=== PATIENT | female | born 1950 | race Caucasian/White ===

== ENCOUNTER 2021-03-15 14:58 | Inpatient (IN) | payer MEDICARE ==
[2021-03-15] MEDS ORDERED: fentaNYL Citrate-0.9 % NaCl/PF 100 ML IVPB SCH (15:15)
[2021-03-15 15:31] LABS: #Basophils 0.3 10x3/uL (0.0-0.2); #Eosinphils 0.5 10x3/uL (0.0-0.5); #Monocytes 0.7 10x3/uL (0.0-1.1); #Neutrophils 13.4 10x3/uL (1.5-8.4); %Basophils 1.3 % (0.0-2.0); %Eosinophils 2.3 % (0.0-6.0); %Monocytes 3.5 % (0.0-10.0); %Neutrophils 69.1 % (40.0-75.0); Hemoglobin 13.5 g/dL (12.0-15.5); Mean Corpuscular HGB CONC 32.3 g/dL (32.0-36.0); Mean Corpuscular Hemoglobin 30.3 pg (27.0-33.0); Mean Corpuscular Volume 93.7 fl (81.6-98.3); Mean Platelet Volume 10.6 fl (7.4-10.4); Platelet Count 271 10x3/uL (150-450); Red Blood Cell (RBC) Count 4.46 10x6/uL (3.90-5.03); White Blood Cell (WBC) Count 19.4 10x3/uL (3.5-10.5)
[2021-03-15 15:45] LABS: ALT (SGPT) 52 U/L (8-55); AST (SGOT) 73 U/L (5-34); Albumin 2.6 g/dL (3.4-4.8); Alkaline Phosphatase 94 U/L (40-110); Anion Gap 17 mmol/L (10-20); BUN (Urea Nitrogen) 5 mg/dL (9.8-20.1); Bilirubin, Total 0.4 mg/dL (0.2-1.2); CK (CPK) 66 U/L (29-168); Calc. Creatinine Clearance 0 mL/min (70-130); Calcium 9.8 mg/dL (7.8-10.44); Carbon Dioxide 29 mmol/L (23-31); Chloride 104 mmol/L (98-107); Glucose 295 mg/dL (80-115); Lipase 17 U/L (8-78); Magnesium 1.6 mg/dL (1.6-2.6); Protein, Total 5.6 g/dL (5.8-8.1); Sodium 148 mmol/L (136-145)
[2021-03-15 15:49] LABS: Potassium 2.4 mmol/L (3.5-5.1)
[2021-03-15 16:08] LABS: CKMB 2.4 ng/mL (0-6.6)
[2021-03-15 16:39] LABS: SARS-CoV-2 NAA Rapid Test DETECTED (NotDetected)
[2021-03-15 16:40] LABS: PTT 20.7 sec (22.0-33.0)
[2021-03-15 17:01] LABS: Bilirubin Neg (Negative); Blood, Urine 50 (Negative); Clarity Clear (Clear); Glucose, Urine (Dipstick) 100 mg/dL (Negative); Ketone, Urine Negative (Negative); Leukocyte 25 (Negative); Nitrite Negative (Negative); Protein, Urine (Dipstick) 500 mg/dl (Neg-Trace); Specific Gravity, Urine 1.015 (1.002-1.036); Urobilinogen Normal mg/dL (Less than 2); pH, Urine 6.5 (5.0-9.0)
[2021-03-15] MEDS ORDERED: Potassium Chloride 20 MEQ/100 ML PREMIX BAG ONE (17:08)
[2021-03-15] MEDS ORDERED: Piperacillin/Tazobactam 4.5 GM VIAL ONE (17:08)
[2021-03-15 17:27] LABS: Bacteria/HPF Rare-Few HPF (None Seen); Squamous Epithelial 0-3 HPF (0-3); WBC/HPF 0-3 HPF (0-3); Yeast-Budding 1+ HPF (None Seen)
[2021-03-15] MEDS ORDERED: Ventilator Sedation Protocol 1 EACH FS ONE (17:50)
[2021-03-15] MEDS ORDERED: Ondansetron PF 4 MG/2 ML Vial IVP PRN (17:50)
[2021-03-15] MEDS ORDERED: Senokot S 8.6-50 MG TAB PO PRN (17:50)
[2021-03-15] MEDS ORDERED: methylPREDNISolone Sod Succ/PF 125 MG/2 ML VIAL ONE (17:53)
[2021-03-15] MEDS ORDERED: Piperacillin/Tazobactam 4.5 GM in Sodium Chloride 0.9% 100 ML IVPB SCH (18:00)
[2021-03-15 18:26] LABS: Lactic Acid 2.9 mmol/L (0.5-2.2)
[2021-03-15] MEDS ORDERED: Sodium Chloride 0.9% 1,000 ML IV SCH (19:00)
[2021-03-15] MEDS ORDERED: Dextrose 50% Abboject 50 ML SYRINGE SLOW IVP PRN (19:07)
[2021-03-15] MEDS ORDERED: Dextrose 5% in Water 1,000 ML IV PRN (19:07)
[2021-03-15] MEDS ORDERED: Norepinephrine 8 MG/0.9% NS 250 ML ONE (19:41)
[2021-03-15] MEDS ORDERED: Propofol BOLUS 1,000 MG/100 ML VIAL IV PRN (20:30)
[2021-03-15] MEDS ORDERED: Norepinephrine 8 MG/0.9% NS 250 ML IVPB SCH (20:30)
[2021-03-15] MEDS ORDERED: Propofol 1,000 MG/100 ML VIAL IV PRN (20:30)
[2021-03-15] MEDS ORDERED: Lactated Ringer's 1,000 ML IV SCH (20:30)
[2021-03-15] MEDS ORDERED: Fentanyl BOLUS 250 ML IVPB PRN (20:30)
[2021-03-15] MEDS ORDERED: DISCONTINUE PREVIOUS NARCOTIC PAIN MEDICATIONS AND BENZODIAZEPINES FS SCH (20:30)
[2021-03-15] MEDS ORDERED: Morphine 2 MG/ML VIAL SLOW IVP PRN (20:30)
[2021-03-15 21:12] LABS: ALV-art Gradient 260.675 mmHg (0-20); Actual Bicarbonate (HCO3a) 33.1 mEq/L (22-28); Base Excess (BEa) 3.2 mEq/L (-2.0 to +3.0); CO2 Tension 74.5 mmHg (35.0-45.0); Calcium, Ionized (arterial) 1.26 mmol/L (1.12-1.30); Carboxyhemoglobin (COHb) 0.4 gm% (0.0-3.0); Hemoglobin (Hb) 15.8 g/dL (12.0-16.0); O2 Tension (PaO2), arterial 359.2 mmHg (> 80.0); Potassium - ABG Lab 3.2 mmol/L (3.70-5.30); Puncture Site RRA; pH, Arterial 7.27 (7.35-7.45)
[2021-03-15] MEDS: fentaNYL Citrate-0.9 % NaCl/PF 100 ML IVPB SCH (21:47)
[2021-03-15] MEDS: Enoxaparin Sodium 40 MG/0.4 ML SYRINGE SC SCH (21:51)
[2021-03-15] MEDS: Vancomycin HCl 1 GM in Sodium Chloride 0.9% 250 ML 250 ML IVPB SCH ×2 (21:51→22:54)
[2021-03-15 21:59] LABS: #Basophils 0.1 10x3/uL (0.0-0.2); #Monocytes 0.9 10x3/uL (0.0-1.1); #Neutrophils 15.6 10x3/uL (1.5-8.4); %Basophils 0.6 % (0.0-2.0); %Eosinophils 0.1 % (0.0-6.0); %Lymphocytes 3.7 % (18.0-47.0); %Monocytes 4.9 % (0.0-10.0); %Neutrophils 87.1 % (40.0-75.0); Hemoglobin 14.5 g/dL (12.0-15.5); Mean Corpuscular HGB CONC 31.7 g/dL (32.0-36.0); Mean Corpuscular Hemoglobin 30.3 pg (27.0-33.0); Mean Corpuscular Volume 95.4 fl (81.6-98.3); Mean Platelet Volume 10.9 fl (7.4-10.4); Platelet Count 221 10x3/uL (150-450); RBC Distribution Width 13.9 % (11.5-14.5); Red Blood Cell (RBC) Count 4.79 10x6/uL (3.90-5.03); White Blood Cell (WBC) Count 17.9 10x3/uL (3.5-10.5)
[2021-03-15] MEDS ORDERED: MEROPENEM 1 GM/50 ML 1 GM in Premix Bag 1 BAG IVPB SCH (22:00)
[2021-03-15 22:09] LABS: ALT (SGPT) 57 U/L (8-55); AST (SGOT) 63 U/L (5-34); Alkaline Phosphatase 96 U/L (40-110); Anion Gap 14 mmol/L (10-20); BUN (Urea Nitrogen) 7 mg/dL (9.8-20.1); Bilirubin, Total 0.6 mg/dL (0.2-1.2); CRP (Inflammatory) 2.57 mg/dL (= or < 0.5); Calc. Creatinine Clearance 152 mL/min (70-130); Calcium 9.8 mg/dL (7.8-10.44); Carbon Dioxide 33 mmol/L (23-31); Chloride 104 mmol/L (98-107); Globulin 3.3 g/dL (2.4-3.5); Glucose 259 mg/dL (80-115); Protein, Total 6.3 g/dL (5.8-8.1); Sodium 148 mmol/L (136-145)
[2021-03-15] MEDS: MEROPENEM 1 GM/50 ML 1 GM in Premix Bag 1 BAG IVPB SCH ×2 (22:09→22:45)
[2021-03-15] MEDS: Hydrocortisone Sod Succ/PF 100 mg/2 ml Vial IVP SCH (22:09)
[2021-03-15] MEDS: HumaLOG 300 UNITS/3 ML VIAL SC PRN (22:09)
[2021-03-15] MEDS: Famotidine/PF 20 mg/2ml Vial SLOW IVP SCH (22:17)
[2021-03-15 23:47] LABS: Legionella Urinary Ag Negative (Negative)
[2021-03-15 23:48] LABS: Strep pneumo Urine Ag NEGATIVE (NEGATIVE)
[2021-03-16] MEDS: fentaNYL Citrate-0.9 % NaCl/PF 100 ML IVPB SCH (03:45)
[2021-03-16 04:05] LABS: #Basophils 0.1 10x3/uL (0.0-0.2); #Monocytes 0.6 10x3/uL (0.0-1.1); #Neutrophils 12.9 10x3/uL (1.5-8.4); %Basophils 0.3 % (0.0-2.0); %Monocytes 3.8 % (0.0-10.0); %Neutrophils 88.9 % (40.0-75.0); Hemoglobin 13.7 g/dL (12.0-15.5); Mean Corpuscular HGB CONC 32.1 g/dL (32.0-36.0); Mean Corpuscular Hemoglobin 30.6 pg (27.0-33.0); Mean Corpuscular Volume 95.3 fl (81.6-98.3); Mean Platelet Volume 11.1 fl (7.4-10.4); Platelet Count 188 10x3/uL (150-450); RBC Distribution Width 14.2 % (11.5-14.5); Red Blood Cell (RBC) Count 4.48 10x6/uL (3.90-5.03); White Blood Cell (WBC) Count 14.5 10x3/uL (3.5-10.5)
[2021-03-16 04:18] LABS: ALT (SGPT) 51 U/L (8-55); AST (SGOT) 50 U/L (5-34); Albumin 2.8 g/dL (3.4-4.8); Alkaline Phosphatase 90 U/L (40-110); Anion Gap 13 mmol/L (10-20); BUN (Urea Nitrogen) 9 mg/dL (9.8-20.1); Bilirubin, Total 0.4 mg/dL (0.2-1.2); Calc. Creatinine Clearance 152 mL/min (70-130); Calcium 9.5 mg/dL (7.8-10.44); Carbon Dioxide 32 mmol/L (23-31); Chloride 106 mmol/L (98-107); Globulin 3.4 g/dL (2.4-3.5); Glucose 197 mg/dL (80-115); Potassium 3.3 mmol/L (3.5-5.1); Protein, Total 6.2 g/dL (5.8-8.1); Sodium 148 mmol/L (136-145)
[2021-03-16] MEDS: HumaLOG 300 UNITS/3 ML VIAL SC PRN ×4 (04:42→21:25)
[2021-03-16 04:43] LABS: CO2 Tension 97.6 mmHg (35.0-45.0); pH, Arterial 7.17 (7.35-7.45)
[2021-03-16 04:44] LABS: Actual Bicarbonate (HCO3a) 34.8 mEq/L (22-28); Base Excess (BEa) 2.4 mEq/L (-2.0 to +3.0); Carboxyhemoglobin (COHb) 0.9 gm% (0.0-3.0); Hemoglobin (Hb) 15.7 g/dL (12.0-16.0); O2 Tension (PaO2), arterial 61.8 mmHg (> 80.0); Potassium - ABG Lab 2.5 mmol/L (3.70-5.30)
[2021-03-16 04:45] LABS: Puncture Site RRA
[2021-03-16] MEDS: Hydrocortisone Sod Succ/PF 100 mg/2 ml Vial IVP SCH ×3 (05:09→21:02)
[2021-03-16 05:26] LABS: CKMB 7.6 ng/mL (0-6.6)
[2021-03-16 05:35] LABS: Actual Bicarbonate (HCO3a) 34.5 mEq/L (22-28); Base Excess (BEa) 6.1 mEq/L (-2.0 to +3.0); CO2 Tension 67.4 mmHg (35.0-45.0); Calcium, Ionized (arterial) 1.24 mmol/L (1.12-1.30); Carboxyhemoglobin (COHb) 0.6 gm% (0.0-3.0); Hemoglobin (Hb) 14.2 g/dL (12.0-16.0); O2 Tension (PaO2), arterial 90.8 mmHg (> 80.0); Potassium - ABG Lab 3.3 mmol/L (3.70-5.30); Puncture Site RRA; pH, Arterial 7.33 (7.35-7.45)
[2021-03-16] MEDS ORDERED: MEROPENEM 1 GM/50 ML 1 GM in Premix Bag 1 BAG IVPB SCH (06:00)
[2021-03-16] MEDS: MEROPENEM 1 GM/50 ML 1 GM in Premix Bag 1 BAG IVPB SCH ×3 (08:00→23:08)
[2021-03-16] MEDS: Famotidine/PF 20 mg/2ml Vial SLOW IVP SCH ×2 (08:35→21:02)
[2021-03-16] MEDS: Enoxaparin Sodium 40 MG/0.4 ML SYRINGE SC SCH ×2 (08:35→21:02)
[2021-03-16] MEDS ORDERED: Dexamethasone 6 MG in Sodium Chloride 0.9% 50 ML IVPB SCH (09:00)
[2021-03-16] MEDS: VANCOMYCIN 2 GRAM/400 ML BAG 2 GM in Premix Bag 1 BAG IVPB SCH ×2 (09:21→21:02)
[2021-03-16] MEDS ORDERED: Meropenem 2 GM in Sodium Chloride 0.9% 100 ML IVPB SCH (14:00)
[2021-03-16 14:24] LABS: CKMB 5.1 ng/mL (0-6.6)
[2021-03-16] MEDS: Potassium Chloride 20 MEQ in Premix Bag 1 BAG IVPB SCH ×2 (14:51→15:36)
[2021-03-16 15:03] LABS: Anion Gap 15 mmol/L (10-20); BUN (Urea Nitrogen) 11 mg/dL (9.8-20.1); Calc. Creatinine Clearance 167 mL/min (70-130); Calcium 9.3 mg/dL (7.8-10.44); Carbon Dioxide 30 mmol/L (23-31); Chloride 107 mmol/L (98-107); Glucose 175 mg/dL (80-115); Potassium 3.2 mmol/L (3.5-5.1); Sodium 149 mmol/L (136-145)
[2021-03-16 18:29] LABS: SARS-CoV-2 IgG Ab Reactive (NonReactive); SARS-CoV-2 IgG Index 3.98 S/CO (< 1.40)
[2021-03-16] MEDS ORDERED: Propofol 1,000 MG/100 ML VIAL IV PRN (21:45)
[2021-03-17] MEDS: Acetaminophen 650 MG Suppository PR PRN (02:34)
[2021-03-17 03:45] LABS: #Basophils 0.1 10x3/uL (0.0-0.2); #Monocytes 0.7 10x3/uL (0.0-1.1); #Neutrophils 9.2 10x3/uL (1.5-8.4); %Basophils 0.5 % (0.0-2.0); %Lymphocytes 10.6 % (18.0-47.0); %Monocytes 6.4 % (0.0-10.0); %Neutrophils 81.4 % (40.0-75.0); Hemoglobin 12.1 g/dL (12.0-15.5); Mean Corpuscular HGB CONC 31.7 g/dL (32.0-36.0); Mean Corpuscular Hemoglobin 30.4 pg (27.0-33.0); Mean Platelet Volume 10.6 fl (7.4-10.4); Platelet Count 161 10x3/uL (150-450); RBC Distribution Width 14.2 % (11.5-14.5); Red Blood Cell (RBC) Count 3.98 10x6/uL (3.90-5.03); White Blood Cell (WBC) Count 11.3 10x3/uL (3.5-10.5)
[2021-03-17 03:53] LABS: ALT (SGPT) 36 U/L (8-55); AST (SGOT) 29 U/L (5-34); Albumin 2.7 g/dL (3.4-4.8); Alkaline Phosphatase 99 U/L (40-110); Anion Gap 13 mmol/L (10-20); BUN (Urea Nitrogen) 16 mg/dL (9.8-20.1); Bilirubin, Total 0.4 mg/dL (0.2-1.2); Calc. Creatinine Clearance 164 mL/min (70-130); Calcium 9.2 mg/dL (7.8-10.44); Carbon Dioxide 32 mmol/L (23-31); Chloride 106 mmol/L (98-107); Glucose 241 mg/dL (80-115); Magnesium 1.8 mg/dL (1.6-2.6); Phosphorus 2.5 mg/dL (2.3-4.7); Protein, Total 5.7 g/dL (5.8-8.1); Sodium 148 mmol/L (136-145)
[2021-03-17 04:21] LABS: Lactic Acid 2.1 mmol/L (0.5-2.2)
[2021-03-17] MEDS: HumaLOG 300 UNITS/3 ML VIAL SC PRN ×4 (04:28→23:15)
[2021-03-17] MEDS: fentaNYL Citrate-0.9 % NaCl/PF 100 ML IVPB SCH (05:03)
[2021-03-17 05:27] LABS: Actual Bicarbonate (HCO3a) 32.9 mEq/L (22-28); Base Excess (BEa) 7.5 mEq/L (-2.0 to +3.0); CO2 Tension 49.8 mmHg (35.0-45.0); Calcium, Ionized (arterial) 1.19 mmol/L (1.12-1.30); Carboxyhemoglobin (COHb) 0.3 gm% (0.0-3.0); Hemoglobin (Hb) 12.8 g/dL (12.0-16.0); Potassium - ABG Lab 2.9 mmol/L (3.70-5.30); Puncture Site RRA; pH, Arterial 7.44 (7.35-7.45)
[2021-03-17] MEDS: Hydrocortisone Sod Succ/PF 100 mg/2 ml Vial IVP SCH ×2 (06:19→21:11)
[2021-03-17] MEDS: Famotidine/PF 20 mg/2ml Vial SLOW IVP SCH ×2 (08:42→21:11)
[2021-03-17] MEDS: Enoxaparin Sodium 40 MG/0.4 ML SYRINGE SC SCH ×2 (08:42→21:11)
[2021-03-17] MEDS: MEROPENEM 1 GM/50 ML 1 GM in Premix Bag 1 BAG IVPB SCH ×2 (08:43→16:01)
[2021-03-17 09:40] LABS: Vancomycin, Trough 24.7 ug/mL
[2021-03-17] MEDS: Lantus 1000 UNITS/10 ML VIAL SC SCH (09:53)
[2021-03-17] MEDS: Potassium Chloride 20 MEQ in Premix Bag 1 BAG IVPB SCH ×2 (09:54→11:01)
[2021-03-17] MEDS ORDERED: Metoprolol Tartrate 5 MG/5 ML VIAL ONE (12:15)
[2021-03-17] MEDS ORDERED: Metoprolol Tartrate 5 MG/5 ML VIAL IVP SCH (12:30)
[2021-03-17] MEDS: Vancomycin 1.5 GRAM/300 ML BAG 1.5 GM in Premix Bag 1 BAG IVPB SCH (14:01)
[2021-03-17] MEDS: hydrALAZINE 20 MG/ML VIAL SLOW IVP PRN (14:21)
[2021-03-17] MEDS: Lorazepam 2 MG/ML VIAL SLOW IVP PRN (14:51)
[2021-03-17 15:29] LABS: Anion Gap 14 mmol/L (10-20); BUN (Urea Nitrogen) 19 mg/dL (9.8-20.1); Calc. Creatinine Clearance 175 mL/min (70-130); Calcium 9.6 mg/dL (7.8-10.44); Carbon Dioxide 33 mmol/L (23-31); Chloride 108 mmol/L (98-107); Glucose 237 mg/dL (80-115); Potassium 3.2 mmol/L (3.5-5.1); Sodium 152 mmol/L (136-145)
[2021-03-17] MEDS: Metoprolol Tartrate 50 MG TAB PO SCH (21:12)
[2021-03-17] MEDS: Nystatin Powder 15 GM BOT TOP SCH (21:25)
[2021-03-17] MEDS: Hydrocortisone 1% Cream 30 GM TUBE TOP SCH (21:26)
[2021-03-18] MEDS: MEROPENEM 1 GM/50 ML 1 GM in Premix Bag 1 BAG IVPB SCH ×3 (00:14→15:02)
[2021-03-18] MEDS: Vancomycin 1.5 GRAM/300 ML BAG 1.5 GM in Premix Bag 1 BAG IVPB SCH ×2 (02:59→13:45)
[2021-03-18 04:01] LABS: #Basophils 0.1 10x3/uL (0.0-0.2); #Monocytes 0.5 10x3/uL (0.0-1.1); #Neutrophils 7.4 10x3/uL (1.5-8.4); %Basophils 0.6 % (0.0-2.0); %Eosinophils 0.2 % (0.0-6.0); %Lymphocytes 13.1 % (18.0-47.0); %Monocytes 5.5 % (0.0-10.0); %Neutrophils 78.9 % (40.0-75.0); Hemoglobin 12.4 g/dL (12.0-15.5); Mean Corpuscular HGB CONC 32.2 g/dL (32.0-36.0); Mean Corpuscular Hemoglobin 30.4 pg (27.0-33.0); Mean Corpuscular Volume 94.4 fl (81.6-98.3); Mean Platelet Volume 11.6 fl (7.4-10.4); Platelet Count 169 10x3/uL (150-450); RBC Distribution Width 14.6 % (11.5-14.5); Red Blood Cell (RBC) Count 4.08 10x6/uL (3.90-5.03); White Blood Cell (WBC) Count 9.4 10x3/uL (3.5-10.5)
[2021-03-18 04:20] LABS: Anion Gap 16 mmol/L (10-20); BUN (Urea Nitrogen) 19 mg/dL (9.8-20.1); Calc. Creatinine Clearance 184 mL/min (70-130); Carbon Dioxide 31 mmol/L (23-31); Chloride 109 mmol/L (98-107); Potassium 3.1 mmol/L (3.5-5.1); Sodium 153 mmol/L (136-145)
[2021-03-18 04:21] LABS: ALT (SGPT) 34 U/L (8-55); AST (SGOT) 30 U/L (5-34); Alkaline Phosphatase 132 U/L (40-110); Bilirubin, Total 0.6 mg/dL (0.2-1.2); Calcium 9.3 mg/dL (7.8-10.44); Glucose 259 mg/dL (80-115); Magnesium 1.8 mg/dL (1.6-2.6)
[2021-03-18] MEDS: HumaLOG 300 UNITS/3 ML VIAL SC PRN ×3 (04:27→16:10)
[2021-03-18] MEDS: hydrALAZINE 20 MG/ML VIAL SLOW IVP PRN (05:13)
[2021-03-18] MEDS: Levothyroxine Sodium 100 MCG TAB PO SCH (05:24)
[2021-03-18] MEDS: Lorazepam 2 MG/ML VIAL SLOW IVP PRN ×2 (05:42→12:31)
[2021-03-18] MEDS: Hydrocortisone Sod Succ/PF 100 mg/2 ml Vial IVP SCH (08:23)
[2021-03-18] MEDS: Famotidine/PF 20 mg/2ml Vial SLOW IVP SCH ×2 (08:24→19:52)
[2021-03-18] MEDS: Enoxaparin Sodium 40 MG/0.4 ML SYRINGE SC SCH ×2 (08:24→19:52)
[2021-03-18] MEDS: Metoprolol Tartrate 50 MG TAB PO SCH ×2 (08:24→19:52)
[2021-03-18] MEDS: Aspirin 81 mg Enteric Coated Tablet PO SCH (08:24)
[2021-03-18] MEDS: Hydrocortisone 1% Cream 30 GM TUBE TOP SCH ×2 (08:25→19:53)
[2021-03-18] MEDS: Nystatin Powder 15 GM BOT TOP SCH ×2 (08:25→19:54)
[2021-03-18] MEDS: Lantus 1000 UNITS/10 ML VIAL SC SCH (08:37)
[2021-03-18] MEDS: Acetaminophen 650 MG Suppository PR PRN (09:37)
[2021-03-18] MEDS: Potassium Chloride 20 MEQ in Premix Bag 1 BAG IVPB SCH ×3 (09:45→13:46)
[2021-03-18 13:17] LABS: Anion Gap 13 mmol/L (10-20); BUN (Urea Nitrogen) 18 mg/dL (9.8-20.1); Calc. Creatinine Clearance 191 mL/min (70-130); Carbon Dioxide 32 mmol/L (23-31); Chloride 109 mmol/L (98-107); Glucose 263 mg/dL (80-115); Magnesium 1.8 mg/dL (1.6-2.6); Potassium 3.6 mmol/L (3.5-5.1); Sodium 150 mmol/L (136-145)
[2021-03-18] MEDS ORDERED: Potassium Phosphate 30 MMOL in Sodium Chloride 0.9% 500 ML IVPB SCH (15:00)
[2021-03-19] MEDS: MEROPENEM 1 GM/50 ML 1 GM in Premix Bag 1 BAG IVPB SCH ×4 (00:06→23:13)
[2021-03-19] MEDS: Vancomycin 1.5 GRAM/300 ML BAG 1.5 GM in Premix Bag 1 BAG IVPB SCH ×2 (02:13→13:03)
[2021-03-19] MEDS: Levothyroxine Sodium 100 MCG TAB PO SCH (05:20)
[2021-03-19] MEDS: HumaLOG 300 UNITS/3 ML VIAL SC PRN ×3 (05:20→16:08)
[2021-03-19 05:50] LABS: #Basophils 0.1 10x3/uL (0.0-0.2); #Eosinphils 0.3 10x3/uL (0.0-0.5); #Monocytes 0.6 10x3/uL (0.0-1.1); #Neutrophils 5.2 10x3/uL (1.5-8.4); %Basophils 0.9 % (0.0-2.0); %Eosinophils 3.5 % (0.0-6.0); %Lymphocytes 25.8 % (18.0-47.0); %Monocytes 7.4 % (0.0-10.0); %Neutrophils 60.2 % (40.0-75.0); Hemoglobin 12.1 g/dL (12.0-15.5); Mean Corpuscular HGB CONC 31.5 g/dL (32.0-36.0); Mean Corpuscular Hemoglobin 30.3 pg (27.0-33.0); Mean Corpuscular Volume 96.2 fl (81.6-98.3); Platelet Count 168 10x3/uL (150-450); RBC Distribution Width 14.7 % (11.5-14.5); Red Blood Cell (RBC) Count 3.99 10x6/uL (3.90-5.03); White Blood Cell (WBC) Count 8.7 10x3/uL (3.5-10.5)
[2021-03-19 06:03] LABS: Anion Gap 12 mmol/L (10-20); BUN (Urea Nitrogen) 20 mg/dL (9.8-20.1); Calc. Creatinine Clearance 205 mL/min (70-130); Calcium 8.9 mg/dL (7.8-10.44); Carbon Dioxide 31 mmol/L (23-31); Chloride 108 mmol/L (98-107); Glucose 203 mg/dL (80-115); Potassium 3.2 mmol/L (3.5-5.1); Sodium 148 mmol/L (136-145)
[2021-03-19] MEDS: Famotidine/PF 20 mg/2ml Vial SLOW IVP SCH ×2 (08:06→21:30)
[2021-03-19] MEDS: Nystatin Powder 15 GM BOT TOP SCH ×2 (08:06→21:33)
[2021-03-19] MEDS: Aspirin 81 mg Enteric Coated Tablet PO SCH (08:06)
[2021-03-19] MEDS: Metoprolol Tartrate 50 MG TAB PO SCH ×2 (08:06→21:35)
[2021-03-19] MEDS: Hydrocortisone 1% Cream 30 GM TUBE TOP SCH ×2 (08:06→21:33)
[2021-03-19] MEDS: Enoxaparin Sodium 40 MG/0.4 ML SYRINGE SC SCH ×2 (08:06→21:30)
[2021-03-19] MEDS ORDERED: Lantus 1000 UNITS/10 ML VIAL SC SCH ×2 (09:00→21:00)
[2021-03-19] MEDS ORDERED: Potassium Chloride 20 MEQ TAB PO SCH (09:15)
[2021-03-19] MEDS: Acetaminophen 325 MG TAB PO PRN (13:00)
[2021-03-19 13:27] LABS: Vancomycin, Trough 20.1 ug/mL
[2021-03-19] MEDS ORDERED: VANCOMYCIN 1.25 GM/250 ML BAG 1.25 GM in Premix Bag 1 BAG IVPB SCH (14:00)
[2021-03-19] MEDS: Potassium Chloride 20 MEQ TAB PO SCH (16:07)
[2021-03-20] MEDS: VANCOMYCIN 1.25 GM/250 ML BAG 1.25 GM in Premix Bag 1 BAG IVPB SCH ×2 (02:14→13:44)
[2021-03-20 03:49] LABS: #Basophils 0.1 10x3/uL (0.0-0.2); #Eosinphils 0.5 10x3/uL (0.0-0.5); #Monocytes 0.6 10x3/uL (0.0-1.1); #Neutrophils 5.4 10x3/uL (1.5-8.4); %Basophils 1.1 % (0.0-2.0); %Eosinophils 5.8 % (0.0-6.0); %Lymphocytes 19.1 % (18.0-47.0); %Monocytes 7.6 % (0.0-10.0); %Neutrophils 63.9 % (40.0-75.0); Hemoglobin 11.9 g/dL (12.0-15.5); Mean Corpuscular HGB CONC 31.2 g/dL (32.0-36.0); Mean Corpuscular Volume 96.2 fl (81.6-98.3); Platelet Count 168 10x3/uL (150-450); RBC Distribution Width 14.6 % (11.5-14.5); Red Blood Cell (RBC) Count 3.97 10x6/uL (3.90-5.03); White Blood Cell (WBC) Count 8.4 10x3/uL (3.5-10.5)
[2021-03-20 04:18] LABS: ALT (SGPT) 51 U/L (8-55); AST (SGOT) 58 U/L (5-34); Albumin 2.8 g/dL (3.4-4.8); Alkaline Phosphatase 190 U/L (40-110); Anion Gap 13 mmol/L (10-20); BUN (Urea Nitrogen) 20 mg/dL (9.8-20.1); Bilirubin, Total 0.7 mg/dL (0.2-1.2); Calc. Creatinine Clearance 205 mL/min (70-130); Calcium 9.1 mg/dL (7.8-10.44); Carbon Dioxide 30 mmol/L (23-31); Chloride 108 mmol/L (98-107); Glucose 194 mg/dL (80-115); Magnesium 1.9 mg/dL (1.6-2.6); Phosphorus 3.1 mg/dL (2.3-4.7); Potassium 3.4 mmol/L (3.5-5.1); Protein, Total 5.8 g/dL (5.8-8.1); Sodium 148 mmol/L (136-145)
[2021-03-20] MEDS: HumaLOG 300 UNITS/3 ML VIAL SC PRN ×3 (04:26→22:35)
[2021-03-20] MEDS: Levothyroxine Sodium 100 MCG TAB PO SCH (05:34)
[2021-03-20] MEDS: MEROPENEM 1 GM/50 ML 1 GM in Premix Bag 1 BAG IVPB SCH ×3 (08:06→23:39)
[2021-03-20] MEDS: Famotidine/PF 20 mg/2ml Vial SLOW IVP SCH ×2 (08:06→20:52)
[2021-03-20] MEDS: Potassium Chloride 20 MEQ TAB PO SCH ×2 (08:06→16:09)
[2021-03-20] MEDS: Aspirin 81 mg Enteric Coated Tablet PO SCH (08:06)
[2021-03-20] MEDS: Enoxaparin Sodium 40 MG/0.4 ML SYRINGE SC SCH ×2 (08:06→20:51)
[2021-03-20] MEDS: Metoprolol Tartrate 50 MG TAB PO SCH ×2 (08:06→20:51)
[2021-03-20] MEDS: Hydrocortisone 1% Cream 30 GM TUBE TOP SCH ×2 (08:26→22:06)
[2021-03-20] MEDS: Nystatin Powder 15 GM BOT TOP SCH ×2 (08:26→22:06)
[2021-03-20] MEDS: Lantus 1000 UNITS/10 ML VIAL SC SCH ×2 (09:03→20:49)
[2021-03-20 17:37] LABS: CMV DNA-PCR Test Negative (Negative)
[2021-03-21] MEDS: VANCOMYCIN 1.25 GM/250 ML BAG 1.25 GM in Premix Bag 1 BAG IVPB SCH ×2 (03:33→14:53)
[2021-03-21 03:50] LABS: #Basophils 0.1 10x3/uL (0.0-0.2); #Eosinphils 0.5 10x3/uL (0.0-0.5); #Monocytes 0.6 10x3/uL (0.0-1.1); #Neutrophils 5.2 10x3/uL (1.5-8.4); %Basophils 1.1 % (0.0-2.0); %Eosinophils 5.5 % (0.0-6.0); %Lymphocytes 20.9 % (18.0-47.0); %Monocytes 7.4 % (0.0-10.0); %Neutrophils 62.9 % (40.0-75.0); Hemoglobin 12.1 g/dL (12.0-15.5); Mean Corpuscular HGB CONC 31.3 g/dL (32.0-36.0); Mean Corpuscular Volume 95.8 fl (81.6-98.3); Mean Platelet Volume 10.9 fl (7.4-10.4); Platelet Count 189 10x3/uL (150-450); RBC Distribution Width 14.7 % (11.5-14.5); Red Blood Cell (RBC) Count 4.03 10x6/uL (3.90-5.03); White Blood Cell (WBC) Count 8.3 10x3/uL (3.5-10.5)
[2021-03-21 04:02] LABS: ALT (SGPT) 44 U/L (8-55); AST (SGOT) 33 U/L (5-34); Albumin 2.8 g/dL (3.4-4.8); Alkaline Phosphatase 187 U/L (40-110); Anion Gap 12 mmol/L (10-20); BUN (Urea Nitrogen) 20 mg/dL (9.8-20.1); Bilirubin, Total 0.7 mg/dL (0.2-1.2); Calc. Creatinine Clearance 219 mL/min (70-130); Calcium 9.3 mg/dL (7.8-10.44); Carbon Dioxide 30 mmol/L (23-31); Chloride 109 mmol/L (98-107); Glucose 184 mg/dL (80-115); Potassium 3.8 mmol/L (3.5-5.1); Protein, Total 5.8 g/dL (5.8-8.1); Sodium 147 mmol/L (136-145)
[2021-03-21] MEDS: Levothyroxine Sodium 100 MCG TAB PO SCH (07:45)
[2021-03-21] MEDS: Famotidine/PF 20 mg/2ml Vial SLOW IVP SCH ×2 (07:45→19:50)
[2021-03-21] MEDS: Aspirin 81 mg Enteric Coated Tablet PO SCH (07:45)
[2021-03-21] MEDS: Enoxaparin Sodium 40 MG/0.4 ML SYRINGE SC SCH ×2 (07:45→19:50)
[2021-03-21] MEDS: MEROPENEM 1 GM/50 ML 1 GM in Premix Bag 1 BAG IVPB SCH ×2 (07:45→16:51)
[2021-03-21] MEDS: Metoprolol Tartrate 50 MG TAB PO SCH ×2 (07:46→19:50)
[2021-03-21] MEDS: Potassium Chloride 20 MEQ TAB PO SCH (07:46)
[2021-03-21] MEDS: Lantus 1000 UNITS/10 ML VIAL SC SCH ×2 (07:48→19:51)
[2021-03-21] MEDS: Hydrocortisone 1% Cream 30 GM TUBE TOP SCH ×2 (07:49→19:51)
[2021-03-21] MEDS: Nystatin Powder 15 GM BOT TOP SCH ×2 (07:49→19:51)
[2021-03-21] MEDS ORDERED: Furosemide 40 MG/4 ML VIAL SLOW IVP SCH (10:30)
[2021-03-21] MEDS: HumaLOG 300 UNITS/3 ML VIAL SC PRN (10:46)
[2021-03-21 11:32] LABS: ALV-art Gradient 142.775 mmHg (0-20); Actual Bicarbonate (HCO3a) 29.3 mEq/L (22-28); Base Excess (BEa) 4.9 mEq/L (-2.0 to +3.0); CO2 Tension 42.5 mmHg (35.0-45.0); Calcium, Ionized (arterial) 1.19 mmol/L (1.12-1.30); Carboxyhemoglobin (COHb) 0.9 gm% (0.0-3.0); Critical Notified Whom: Telemed; Hemoglobin (Hb) 13.6 g/dL (12.0-16.0); O2 Tension (PaO2), arterial 89.3 mmHg (> 80.0); Potassium - ABG Lab 3.9 mmol/L (3.70-5.30); Puncture Site RRA; pH, Arterial 7.46 (7.35-7.45)
[2021-03-21 22:36] LABS: Mycoplasma pneumoniae IgG AB 244 U/mL (0-99); Mycoplasma pneumoniae IgM AB Less than 770 U/mL (0-769)
[2021-03-22] MEDS: MEROPENEM 1 GM/50 ML 1 GM in Premix Bag 1 BAG IVPB SCH ×4 (00:19→23:28)
[2021-03-22 00:54] LABS: Vancomycin, Trough 16.5 ug/mL
[2021-03-22] MEDS: VANCOMYCIN 1.25 GM/250 ML BAG 1.25 GM in Premix Bag 1 BAG IVPB SCH ×2 (02:23→13:35)
[2021-03-22 03:57] LABS: #Basophils 0.1 10x3/uL (0.0-0.2); #Eosinphils 0.4 10x3/uL (0.0-0.5); #Monocytes 0.7 10x3/uL (0.0-1.1); %Basophils 0.7 % (0.0-2.0); %Eosinophils 3.7 % (0.0-6.0); %Lymphocytes 16.9 % (18.0-47.0); %Monocytes 7.1 % (0.0-10.0); %Neutrophils 69.3 % (40.0-75.0); Hemoglobin 12.6 g/dL (12.0-15.5); Mean Corpuscular HGB CONC 31.7 g/dL (32.0-36.0); Mean Corpuscular Hemoglobin 30.2 pg (27.0-33.0); Mean Corpuscular Volume 95.4 fl (81.6-98.3); Mean Platelet Volume 10.9 fl (7.4-10.4); Platelet Count 219 10x3/uL (150-450); RBC Distribution Width 14.8 % (11.5-14.5); Red Blood Cell (RBC) Count 4.17 10x6/uL (3.90-5.03); White Blood Cell (WBC) Count 10.1 10x3/uL (3.5-10.5)
[2021-03-22 04:05] LABS: Anion Gap 14 mmol/L (10-20); BUN (Urea Nitrogen) 17 mg/dL (9.8-20.1); Calc. Creatinine Clearance 215 mL/min (70-130); Calcium 9.5 mg/dL (7.8-10.44); Carbon Dioxide 30 mmol/L (23-31); Chloride 105 mmol/L (98-107); Glucose 159 mg/dL (80-115); Phosphorus 3.6 mg/dL (2.3-4.7); Potassium 3.5 mmol/L (3.5-5.1); Sodium 145 mmol/L (136-145)
[2021-03-22] MEDS: Levothyroxine Sodium 100 MCG TAB PO SCH (04:53)
[2021-03-22] MEDS: HumaLOG 300 UNITS/3 ML VIAL SC PRN ×3 (04:53→22:32)
[2021-03-22] MEDS: Lantus 1000 UNITS/10 ML VIAL SC SCH ×2 (09:10→20:40)
[2021-03-22] MEDS: Enoxaparin Sodium 40 MG/0.4 ML SYRINGE SC SCH ×2 (09:13→20:39)
[2021-03-22] MEDS: Famotidine/PF 20 mg/2ml Vial SLOW IVP SCH ×2 (09:14→20:39)
[2021-03-22] MEDS: Metoprolol Tartrate 50 MG TAB PO SCH ×2 (09:15→20:40)
[2021-03-22] MEDS: Aspirin 81 mg Enteric Coated Tablet PO SCH (09:15)
[2021-03-22] MEDS: Nystatin Powder 15 GM BOT TOP SCH ×2 (09:34→20:41)
[2021-03-22] MEDS: Hydrocortisone 1% Cream 30 GM TUBE TOP SCH ×2 (09:34→20:39)
[2021-03-22] MEDS: Lorazepam 2 MG/ML VIAL SLOW IVP PRN (22:06)
[2021-03-23] MEDS: VANCOMYCIN 1.25 GM/250 ML BAG 1.25 GM in Premix Bag 1 BAG IVPB SCH ×2 (02:28→14:12)
[2021-03-23] MEDS: Levothyroxine Sodium 100 MCG TAB PO SCH (05:55)
[2021-03-23] MEDS: MEROPENEM 1 GM/50 ML 1 GM in Premix Bag 1 BAG IVPB SCH ×2 (08:26→16:35)
[2021-03-23] MEDS: Enoxaparin Sodium 40 MG/0.4 ML SYRINGE SC SCH ×2 (08:27→21:54)
[2021-03-23] MEDS: Aspirin 81 mg Enteric Coated Tablet PO SCH (08:27)
[2021-03-23] MEDS: Metoprolol Tartrate 50 MG TAB PO SCH ×2 (08:27→21:56)
[2021-03-23] MEDS: Famotidine/PF 20 mg/2ml Vial SLOW IVP SCH ×2 (08:27→21:56)
[2021-03-23] MEDS: Nystatin Powder 15 GM BOT TOP SCH ×2 (08:28→21:55)
[2021-03-23] MEDS: Hydrocortisone 1% Cream 30 GM TUBE TOP SCH ×2 (08:28→21:45)
[2021-03-23] MEDS: Lantus 1000 UNITS/10 ML VIAL SC SCH ×2 (08:32→22:38)
[2021-03-23] MEDS: Lorazepam 2 MG/ML VIAL SLOW IVP PRN (09:35)
[2021-03-23] MEDS ORDERED: Furosemide 40 MG/4 ML VIAL SLOW IVP SCH ×2 (10:45→21:30)
[2021-03-23 12:44] LABS: Actual Bicarbonate (HCO3a) 29.4 mEq/L (22-28); Base Excess (BEa) 5.4 mEq/L (-2.0 to +3.0); CO2 Tension 40.7 mmHg (35.0-45.0); Calcium, Ionized (arterial) 1.17 mmol/L (1.12-1.30); Carboxyhemoglobin (COHb) 0.8 gm% (0.0-3.0); Hemoglobin (Hb) 13.4 g/dL (12.0-16.0); Puncture Site RRA; pH, Arterial 7.48 (7.35-7.45)
[2021-03-23 12:48] LABS: ALV-art Gradient 124.675 mmHg (0-20)
[2021-03-23 13:37] LABS: Vancomycin, Trough 18.1 ug/mL
[2021-03-23 13:42] LABS: Bilirubin Neg (Negative); Blood, Urine Negative (Negative); Clarity Clear (Clear); Glucose, Urine (Dipstick) Normal (Negative); Ketone, Urine Negative (Negative); Leukocyte Negative (Negative); Nitrite Negative (Negative); Protein, Urine (Dipstick) Negative (Neg-Trace); Specific Gravity, Urine 1.015 (1.002-1.036); Urobilinogen Normal mg/dL (Less than 2)
[2021-03-23 13:48] LABS: Urine Culture Reflex No No
[2021-03-23 14:07] LABS: Bacteria/HPF Rare-Few HPF (None Seen); RBC/HPF 0-3 HPF (0-3); Squamous Epithelial 0-3 HPF (0-3)
[2021-03-23] MEDS ORDERED: Dexamethasone 4 mg/ml Vial SLOW IVP SCH (14:15)
[2021-03-23] MEDS: HumaLOG 300 UNITS/3 ML VIAL SC PRN ×2 (16:40→22:37)
[2021-03-23] MEDS: Dexamethasone 4 MG in Sodium Chloride 0.9% 50 ML IVPB SCH (21:55)
[2021-03-23] MEDS ORDERED: Racepinephrine 2.25% 0.5 ML NEB ONE (22:18)
[2021-03-23] MEDS ORDERED: Racepinephrine 2.25% 0.5 ML NEB NEB SCH (22:45)
[2021-03-24] MEDS: Lorazepam 2 MG/ML VIAL SLOW IVP PRN ×3 (03:06→14:16)
[2021-03-24 04:33] LABS: #Basophils 0.1 10x3/uL (0.0-0.2); #Monocytes 0.4 10x3/uL (0.0-1.1); #Neutrophils 7.6 10x3/uL (1.5-8.4); %Basophils 0.8 % (0.0-2.0); %Lymphocytes 8.3 % (18.0-47.0); %Neutrophils 82.9 % (40.0-75.0); Hemoglobin 12.8 g/dL (12.0-15.5); Mean Corpuscular HGB CONC 32.2 g/dL (32.0-36.0); Mean Corpuscular Hemoglobin 30.3 pg (27.0-33.0); Mean Corpuscular Volume 94.1 fl (81.6-98.3); Platelet Count 234 10x3/uL (150-450); RBC Distribution Width 14.6 % (11.5-14.5); Red Blood Cell (RBC) Count 4.23 10x6/uL (3.90-5.03); White Blood Cell (WBC) Count 9.2 10x3/uL (3.5-10.5)
[2021-03-24 04:47] LABS: Anion Gap 14 mmol/L (10-20); BUN (Urea Nitrogen) 18 mg/dL (9.8-20.1); CRP (Inflammatory) 4.17 mg/dL (= or < 0.5); Calc. Creatinine Clearance 170 mL/min (70-130); Calcium 9.4 mg/dL (7.8-10.44); Carbon Dioxide 30 mmol/L (23-31); Chloride 104 mmol/L (98-107); Glucose 283 mg/dL (80-115); Potassium 3.4 mmol/L (3.5-5.1); Sodium 145 mmol/L (136-145)
[2021-03-24] MEDS: HumaLOG 300 UNITS/3 ML VIAL SC PRN ×4 (04:57→21:40)
[2021-03-24] MEDS: Levothyroxine Sodium 100 MCG TAB PO SCH (05:05)
[2021-03-24] MEDS: Dexamethasone 4 MG in Sodium Chloride 0.9% 50 ML IVPB SCH ×4 (05:05→21:38)
[2021-03-24 09:28] LABS: Actual Bicarbonate (HCO3a) 34.7 mEq/L (22-28); Base Excess (BEa) 8.7 mEq/L (-2.0 to +3.0); CO2 Tension 54.3 mmHg (35.0-45.0); Calcium, Ionized (arterial) 1.15 mmol/L (1.12-1.30); Carboxyhemoglobin (COHb) 0.5 gm% (0.0-3.0); Hemoglobin (Hb) 12.3 g/dL (12.0-16.0); O2 Tension (PaO2), arterial 141.3 mmHg (> 80.0); Potassium - ABG Lab 3.4 mmol/L (3.70-5.30); Puncture Site RRA; pH, Arterial 7.42 (7.35-7.45)
[2021-03-24 09:29] LABS: ALV-art Gradient 147.325 mmHg (0-20)
[2021-03-24] MEDS: Aspirin 81 mg Enteric Coated Tablet PO SCH (09:31)
[2021-03-24] MEDS: Metoprolol Tartrate 50 MG TAB PO SCH ×2 (09:31→21:39)
[2021-03-24] MEDS: Enoxaparin Sodium 40 MG/0.4 ML SYRINGE SC SCH ×2 (09:32→21:39)
[2021-03-24] MEDS: Famotidine/PF 20 mg/2ml Vial SLOW IVP SCH ×2 (09:32→21:38)
[2021-03-24] MEDS: Hydrocortisone 1% Cream 30 GM TUBE TOP SCH ×2 (09:33→21:50)
[2021-03-24] MEDS: Nystatin Powder 15 GM BOT TOP SCH ×2 (09:33→21:50)
[2021-03-24] MEDS: Lantus 1000 UNITS/10 ML VIAL SC SCH ×2 (09:36→21:43)
[2021-03-24] MEDS ORDERED: Furosemide 40 MG/4 ML VIAL ONE (15:15)
[2021-03-24] MEDS ORDERED: Furosemide 40 MG/4 ML VIAL SLOW IVP SCH (15:15)
[2021-03-25 04:07] LABS: #Monocytes 0.6 10x3/uL (0.0-1.1); #Neutrophils 7.6 10x3/uL (1.5-8.4); %Basophils 0.2 % (0.0-2.0); %Lymphocytes 9.3 % (18.0-47.0); %Monocytes 6.7 % (0.0-10.0); Hemoglobin 12.3 g/dL (12.0-15.5); Mean Corpuscular HGB CONC 33.2 g/dL (32.0-36.0); Mean Corpuscular Hemoglobin 30.8 pg (27.0-33.0); Mean Platelet Volume 11.1 fl (7.4-10.4); Platelet Count 251 10x3/uL (150-450); RBC Distribution Width 14.3 % (11.5-14.5); Red Blood Cell (RBC) Count 3.99 10x6/uL (3.90-5.03); White Blood Cell (WBC) Count 9.3 10x3/uL (3.5-10.5)
[2021-03-25 04:21] LABS: Anion Gap 14 mmol/L (10-20); BUN (Urea Nitrogen) 28 mg/dL (9.8-20.1); Calc. Creatinine Clearance 189 mL/min (70-130); Calcium 9.7 mg/dL (7.8-10.44); Carbon Dioxide 30 mmol/L (23-31); Chloride 103 mmol/L (98-107); Glucose 229 mg/dL (80-115); Potassium 3.3 mmol/L (3.5-5.1); Sodium 144 mmol/L (136-145)
[2021-03-25] MEDS: HumaLOG 300 UNITS/3 ML VIAL SC PRN ×4 (04:45→22:08)
[2021-03-25] MEDS: Dexamethasone 4 MG in Sodium Chloride 0.9% 50 ML IVPB SCH (05:04)
[2021-03-25] MEDS: Levothyroxine Sodium 100 MCG TAB PO SCH (05:05)
[2021-03-25] MEDS: Famotidine/PF 20 mg/2ml Vial SLOW IVP SCH ×2 (08:12→21:56)
[2021-03-25] MEDS: Enoxaparin Sodium 40 MG/0.4 ML SYRINGE SC SCH ×2 (08:13→21:56)
[2021-03-25] MEDS ORDERED: Loperamide HCl 1 MG/7.5 ML UDCUP PO PRN (08:14)
[2021-03-25] MEDS: Metoprolol Tartrate 50 MG TAB PO SCH ×2 (08:15→21:57)
[2021-03-25] MEDS: Aspirin 81 mg Enteric Coated Tablet PO SCH (08:15)
[2021-03-25] MEDS: Lantus 1000 UNITS/10 ML VIAL SC SCH ×2 (08:16→22:07)
[2021-03-25] MEDS: Nystatin Powder 15 GM BOT TOP SCH ×2 (08:51→21:57)
[2021-03-25] MEDS: Hydrocortisone 1% Cream 30 GM TUBE TOP SCH ×2 (08:51→21:57)
[2021-03-25] MEDS: methylPREDNISolone Sod Succ 40 MG VIAL IVP SCH ×2 (13:17→21:58)
[2021-03-26] MEDS: HumaLOG 300 UNITS/3 ML VIAL SC PRN ×2 (04:28→10:52)
[2021-03-26] MEDS: methylPREDNISolone Sod Succ 40 MG VIAL IVP SCH ×3 (06:07→21:29)
[2021-03-26] MEDS: Levothyroxine Sodium 100 MCG TAB PO SCH (06:07)
[2021-03-26] MEDS: Famotidine/PF 20 mg/2ml Vial SLOW IVP SCH ×2 (08:25→21:28)
[2021-03-26] MEDS: Enoxaparin Sodium 40 MG/0.4 ML SYRINGE SC SCH ×2 (08:25→21:28)
[2021-03-26] MEDS: Aspirin 81 mg Enteric Coated Tablet PO SCH (08:25)
[2021-03-26] MEDS: Metoprolol Tartrate 50 MG TAB PO SCH ×2 (08:25→21:28)
[2021-03-26] MEDS: Lantus 1000 UNITS/10 ML VIAL SC SCH ×2 (08:27→21:36)
[2021-03-26] MEDS: Nystatin Powder 15 GM BOT TOP SCH ×2 (08:33→21:34)
[2021-03-26] MEDS: Hydrocortisone 1% Cream 30 GM TUBE TOP SCH ×2 (08:36→21:34)
[2021-03-26] MEDS ORDERED: Morphine 2 MG/ML VIAL SLOW IVP PRN (09:00)
[2021-03-26] MEDS ORDERED: Fentanyl BOLUS 250 ML IVPB PRN (09:00)
[2021-03-26] MEDS ORDERED: Lorazepam 2 MG/ML VIAL SLOW IVP PRN (09:00)
[2021-03-26] MEDS: hydrALAZINE 20 MG/ML VIAL SLOW IVP PRN (09:28)
[2021-03-26] MEDS ORDERED: Dextrose 5% in Water 1,000 ML IV PRN (10:36)
[2021-03-26] MEDS ORDERED: Dextrose 50% Abboject 50 ML SYRINGE SLOW IVP PRN (10:36)
[2021-03-26] MEDS ORDERED: Potassium Chloride 20 MEQ in Premix Bag 1 BAG IVPB SCH (10:45)
[2021-03-26] MEDS: Insulin Regular 300 UNITS/3 ML VIAL SC PRN ×2 (15:23→21:36)
[2021-03-26] MEDS: Acetaminophen 325 MG TAB PO PRN (21:29)
[2021-03-27 04:49] LABS: #Basophils 0.1 10x3/uL (0.0-0.2); #Monocytes 0.7 10x3/uL (0.0-1.1); #Neutrophils 8.2 10x3/uL (1.5-8.4); %Basophils 0.5 % (0.0-2.0); %Lymphocytes 12.4 % (18.0-47.0); %Monocytes 6.8 % (0.0-10.0); Hemoglobin 13.1 g/dL (12.0-15.5); Mean Corpuscular HGB CONC 32.4 g/dL (32.0-36.0); Mean Corpuscular Hemoglobin 29.7 pg (27.0-33.0); Mean Corpuscular Volume 91.6 fl (81.6-98.3); Mean Platelet Volume 10.7 fl (7.4-10.4); Platelet Count 344 10x3/uL (150-450); RBC Distribution Width 14.2 % (11.5-14.5); Red Blood Cell (RBC) Count 4.41 10x6/uL (3.90-5.03); White Blood Cell (WBC) Count 10.8 10x3/uL (3.5-10.5)
[2021-03-27 05:04] LABS: Anion Gap 11 mmol/L (10-20); BUN (Urea Nitrogen) 25 mg/dL (9.8-20.1); Calc. Creatinine Clearance 187 mL/min (70-130); Calcium 9.5 mg/dL (7.8-10.44); Carbon Dioxide 33 mmol/L (23-31); Chloride 101 mmol/L (98-107); Glucose 218 mg/dL (80-115); Potassium 3.7 mmol/L (3.5-5.1); Sodium 141 mmol/L (136-145)
[2021-03-27] MEDS: Levothyroxine Sodium 100 MCG TAB PO SCH (05:56)
[2021-03-27] MEDS: methylPREDNISolone Sod Succ 40 MG VIAL IVP SCH ×3 (05:56→21:07)
[2021-03-27] MEDS: Insulin Regular 300 UNITS/3 ML VIAL SC PRN ×3 (06:03→21:06)
[2021-03-27] MEDS: Enoxaparin Sodium 40 MG/0.4 ML SYRINGE SC SCH ×2 (08:29→20:59)
[2021-03-27] MEDS: Metoprolol Tartrate 50 MG TAB PO SCH ×2 (08:29→21:06)
[2021-03-27] MEDS: Hydrocortisone 1% Cream 30 GM TUBE TOP SCH ×2 (08:30→21:02)
[2021-03-27] MEDS: Aspirin 81 mg Enteric Coated Tablet PO SCH (08:30)
[2021-03-27] MEDS: Famotidine/PF 20 mg/2ml Vial SLOW IVP SCH ×2 (08:30→21:00)
[2021-03-27] MEDS: Nystatin Powder 15 GM BOT TOP SCH ×2 (08:31→21:06)
[2021-03-27] MEDS: Lantus 1000 UNITS/10 ML VIAL SC SCH ×2 (09:27→21:06)
[2021-03-27] MEDS ORDERED: Furosemide 40 MG/4 ML VIAL SLOW IVP SCH (11:45)
[2021-03-27] MEDS: Furosemide 40 MG/4 ML VIAL SLOW IVP SCH (21:01)
[2021-03-28] MEDS: Levothyroxine Sodium 100 MCG TAB PO SCH (05:17)
[2021-03-28] MEDS: methylPREDNISolone Sod Succ 40 MG VIAL IVP SCH ×3 (05:18→22:20)
[2021-03-28] MEDS: Insulin Regular 300 UNITS/3 ML VIAL SC PRN ×4 (05:21→22:15)
[2021-03-28] MEDS: Furosemide 40 MG/4 ML VIAL SLOW IVP SCH ×2 (08:25→22:15)
[2021-03-28] MEDS: Metoprolol Tartrate 50 MG TAB PO SCH ×2 (08:29→22:20)
[2021-03-28] MEDS: Aspirin 81 mg Enteric Coated Tablet PO SCH (08:29)
[2021-03-28] MEDS: Enoxaparin Sodium 40 MG/0.4 ML SYRINGE SC SCH ×2 (08:29→22:10)
[2021-03-28] MEDS: Nystatin Powder 15 GM BOT TOP SCH ×2 (08:30→22:10)
[2021-03-28] MEDS: Famotidine/PF 20 mg/2ml Vial SLOW IVP SCH ×2 (08:30→22:15)
[2021-03-28] MEDS: Hydrocortisone 1% Cream 30 GM TUBE TOP SCH ×2 (08:30→22:20)
[2021-03-28] MEDS: Lantus 1000 UNITS/10 ML VIAL SC SCH ×2 (08:33→22:15)
[2021-03-29] MEDS: methylPREDNISolone Sod Succ 40 MG VIAL IVP SCH ×3 (05:03→21:50)
[2021-03-29] MEDS: Levothyroxine Sodium 100 MCG TAB PO SCH (05:03)
[2021-03-29 05:16] LABS: #Basophils 0.1 10x3/uL (0.0-0.2); #Monocytes 0.6 10x3/uL (0.0-1.1); #Neutrophils 13.9 10x3/uL (1.5-8.4); %Basophils 0.4 % (0.0-2.0); %Monocytes 3.8 % (0.0-10.0); %Neutrophils 87.4 % (40.0-75.0); Mean Corpuscular HGB CONC 33.9 g/dL (32.0-36.0); Mean Corpuscular Hemoglobin 29.9 pg (27.0-33.0); Mean Corpuscular Volume 88.2 fl (81.6-98.3); Mean Platelet Volume 10.3 fl (7.4-10.4); Platelet Count 370 10x3/uL (150-450); RBC Distribution Width 13.9 % (11.5-14.5); Red Blood Cell (RBC) Count 5.02 10x6/uL (3.90-5.03); White Blood Cell (WBC) Count 15.9 10x3/uL (3.5-10.5)
[2021-03-29 05:33] LABS: Anion Gap 15 mmol/L (10-20); BUN (Urea Nitrogen) 33 mg/dL (9.8-20.1); Calc. Creatinine Clearance 287 mL/min (70-130); Calcium 9.6 mg/dL (7.8-10.44); Carbon Dioxide 32 mmol/L (23-31); Chloride 96 mmol/L (98-107); Glucose 194 mg/dL (80-115); Magnesium 2.1 mg/dL (1.6-2.6); Potassium 3.3 mmol/L (3.5-5.1); Sodium 140 mmol/L (136-145)
[2021-03-29] MEDS: Insulin Regular 300 UNITS/3 ML VIAL SC PRN ×4 (05:38→21:47)
[2021-03-29] MEDS: Nystatin Powder 15 GM BOT TOP SCH ×2 (08:00→21:53)
[2021-03-29] MEDS: Hydrocortisone 1% Cream 30 GM TUBE TOP SCH ×2 (08:00→21:40)
[2021-03-29] MEDS: Lantus 1000 UNITS/10 ML VIAL SC SCH ×2 (08:00→21:47)
[2021-03-29] MEDS: Metoprolol Tartrate 50 MG TAB PO SCH ×2 (08:01→21:52)
[2021-03-29] MEDS: Famotidine/PF 20 mg/2ml Vial SLOW IVP SCH ×2 (08:01→21:35)
[2021-03-29] MEDS: Enoxaparin Sodium 40 MG/0.4 ML SYRINGE SC SCH ×2 (08:01→21:34)
[2021-03-29] MEDS: Furosemide 40 MG/4 ML VIAL SLOW IVP SCH ×2 (08:01→21:36)
[2021-03-29] MEDS: Aspirin 81 mg Enteric Coated Tablet PO SCH (08:01)
[2021-03-29] MEDS ORDERED: Potassium Chloride 40 MEQ in Premix Bag 1 BAG IVPB SCH (10:00)
[2021-03-30 04:26] LABS: #Basophils 0.1 10x3/uL (0.0-0.2); #Monocytes 0.9 10x3/uL (0.0-1.1); #Neutrophils 15.9 10x3/uL (1.5-8.4); %Basophils 0.3 % (0.0-2.0); %Lymphocytes 5.9 % (18.0-47.0); %Monocytes 4.6 % (0.0-10.0); %Neutrophils 87.1 % (40.0-75.0); Hemoglobin 14.7 g/dL (12.0-15.5); Mean Corpuscular HGB CONC 33.2 g/dL (32.0-36.0); Mean Corpuscular Hemoglobin 29.8 pg (27.0-33.0); Mean Corpuscular Volume 89.9 fl (81.6-98.3); Mean Platelet Volume 10.7 fl (7.4-10.4); Platelet Count 376 10x3/uL (150-450); RBC Distribution Width 13.9 % (11.5-14.5); Red Blood Cell (RBC) Count 4.93 10x6/uL (3.90-5.03); White Blood Cell (WBC) Count 18.3 10x3/uL (3.5-10.5)
[2021-03-30 04:32] LABS: Anion Gap 12 mmol/L (10-20); BUN (Urea Nitrogen) 36 mg/dL (9.8-20.1); Calc. Creatinine Clearance 177 mL/min (70-130); Calcium 9.5 mg/dL (7.8-10.44); Carbon Dioxide 34 mmol/L (23-31); Chloride 95 mmol/L (98-107); Glucose 184 mg/dL (80-115); Potassium 3.4 mmol/L (3.5-5.1); Sodium 138 mmol/L (136-145)
[2021-03-30] MEDS: Insulin Regular 300 UNITS/3 ML VIAL SC PRN ×3 (05:00→21:13)
[2021-03-30] MEDS: Levothyroxine Sodium 100 MCG TAB PO SCH (05:02)
[2021-03-30] MEDS: Nystatin Powder 15 GM BOT TOP SCH ×2 (09:19→21:16)
[2021-03-30] MEDS: Enoxaparin Sodium 40 MG/0.4 ML SYRINGE SC SCH ×2 (09:20→20:55)
[2021-03-30] MEDS: Hydrocortisone 1% Cream 30 GM TUBE TOP SCH ×2 (09:20→21:16)
[2021-03-30] MEDS: Lantus 1000 UNITS/10 ML VIAL SC SCH ×2 (09:21→21:03)
[2021-03-30] MEDS: Famotidine/PF 20 mg/2ml Vial SLOW IVP SCH ×2 (09:22→20:55)
[2021-03-30] MEDS: Furosemide 40 MG/4 ML VIAL SLOW IVP SCH ×2 (09:22→20:55)
[2021-03-30] MEDS: Potassium Bicarbonate/Cit Ac 20 MEQ TAB PO SCH (09:23)
[2021-03-30] MEDS: Metoprolol Tartrate 50 MG TAB PO SCH ×2 (09:23→20:55)
[2021-03-30] MEDS: methylPREDNISolone Sod Succ 40 MG VIAL IVP SCH (09:24)
[2021-03-30] MEDS ORDERED: Aspirin Chewable 81 MG TAB PO SCH (12:00)
[2021-03-31 04:04] LABS: #Basophils 0.1 10x3/uL (0.0-0.2); #Monocytes 1.4 10x3/uL (0.0-1.1); #Neutrophils 13.1 10x3/uL (1.5-8.4); %Basophils 0.4 % (0.0-2.0); %Eosinophils 0.2 % (0.0-6.0); %Lymphocytes 15.3 % (18.0-47.0); %Neutrophils 73.8 % (40.0-75.0); Hemoglobin 15.3 g/dL (12.0-15.5); Mean Corpuscular HGB CONC 33.6 g/dL (32.0-36.0); Mean Corpuscular Hemoglobin 30.4 pg (27.0-33.0); Mean Corpuscular Volume 90.3 fl (81.6-98.3); Mean Platelet Volume 10.7 fl (7.4-10.4); Platelet Count 396 10x3/uL (150-450); Red Blood Cell (RBC) Count 5.04 10x6/uL (3.90-5.03); White Blood Cell (WBC) Count 17.8 10x3/uL (3.5-10.5)
[2021-03-31 04:26] LABS: Anion Gap 15 mmol/L (10-20); BUN (Urea Nitrogen) 37 mg/dL (9.8-20.1); Calc. Creatinine Clearance 171 mL/min (70-130); Calcium 9.5 mg/dL (7.8-10.44); Carbon Dioxide 35 mmol/L (23-31); Chloride 92 mmol/L (98-107); Glucose 153 mg/dL (80-115); Potassium 3.3 mmol/L (3.5-5.1); Sodium 139 mmol/L (136-145)
[2021-03-31] MEDS: Levothyroxine Sodium 100 MCG TAB PO SCH (06:09)
[2021-03-31] MEDS: Aspirin Chewable 81 MG TAB PO SCH (08:50)
[2021-03-31] MEDS: Potassium Bicarbonate/Cit Ac 20 MEQ TAB PO SCH (08:50)
[2021-03-31] MEDS: Furosemide 40 MG/4 ML VIAL SLOW IVP SCH (08:50)
[2021-03-31] MEDS: Famotidine/PF 20 mg/2ml Vial SLOW IVP SCH ×2 (08:50→21:57)
[2021-03-31] MEDS: Metoprolol Tartrate 50 MG TAB PO SCH ×2 (08:51→22:28)
[2021-03-31] MEDS: Lantus 1000 UNITS/10 ML VIAL SC SCH ×2 (08:51→21:58)
[2021-03-31] MEDS: Enoxaparin Sodium 40 MG/0.4 ML SYRINGE SC SCH ×2 (08:52→21:57)
[2021-03-31] MEDS: Hydrocortisone 1% Cream 30 GM TUBE TOP SCH ×2 (08:53→22:27)
[2021-03-31] MEDS: Nystatin Powder 15 GM BOT TOP SCH ×2 (08:53→22:27)
[2021-03-31] MEDS: Insulin Regular 300 UNITS/3 ML VIAL SC PRN ×2 (10:25→16:05)
[2021-03-31] MEDS ORDERED: Lorazepam 2 MG/ML VIAL SLOW IVP SCH (21:45)
[2021-03-31] MEDS: Acetaminophen 325 MG TAB PO PRN (21:58)
[2021-04-01 04:37] LABS: #Basophils 0.1 10x3/uL (0.0-0.2); #Eosinphils 0.1 10x3/uL (0.0-0.5); #Monocytes 0.9 10x3/uL (0.0-1.1); #Neutrophils 9.4 10x3/uL (1.5-8.4); %Basophils 0.5 % (0.0-2.0); %Eosinophils 0.7 % (0.0-6.0); %Lymphocytes 19.5 % (18.0-47.0); %Monocytes 6.9 % (0.0-10.0); Hemoglobin 14.2 g/dL (12.0-15.5); Mean Corpuscular HGB CONC 33.1 g/dL (32.0-36.0); Mean Corpuscular Hemoglobin 30.1 pg (27.0-33.0); Mean Corpuscular Volume 90.9 fl (81.6-98.3); Mean Platelet Volume 10.8 fl (7.4-10.4); Platelet Count 297 10x3/uL (150-450); Red Blood Cell (RBC) Count 4.72 10x6/uL (3.90-5.03); White Blood Cell (WBC) Count 13.4 10x3/uL (3.5-10.5)
[2021-04-01 04:54] LABS: Anion Gap 12 mmol/L (10-20); BUN (Urea Nitrogen) 36 mg/dL (9.8-20.1); CRP (Inflammatory) 1.93 mg/dL (= or < 0.5); Calc. Creatinine Clearance 191 mL/min (70-130); Calcium 9.4 mg/dL (7.8-10.44); Carbon Dioxide 37 mmol/L (23-31); Chloride 93 mmol/L (98-107); Glucose 156 mg/dL (80-115); Potassium 3.3 mmol/L (3.5-5.1); Sodium 139 mmol/L (136-145)
[2021-04-01] MEDS: Levothyroxine Sodium 100 MCG TAB PO SCH (05:05)
[2021-04-01] MEDS: Insulin Regular 300 UNITS/3 ML VIAL SC PRN ×3 (05:15→17:19)
[2021-04-01] MEDS: Potassium Bicarbonate/Cit Ac 20 MEQ TAB PO SCH (10:23)
[2021-04-01] MEDS: Metoprolol Tartrate 50 MG TAB PO SCH ×2 (10:23→20:56)
[2021-04-01] MEDS: Aspirin Chewable 81 MG TAB PO SCH (10:23)
[2021-04-01] MEDS: Famotidine/PF 20 mg/2ml Vial SLOW IVP SCH ×2 (10:24→20:56)
[2021-04-01] MEDS: Lantus 1000 UNITS/10 ML VIAL SC SCH ×2 (10:24→20:56)
[2021-04-01] MEDS: Nystatin Powder 15 GM BOT TOP SCH ×2 (10:25→20:57)
[2021-04-01] MEDS: Hydrocortisone 1% Cream 30 GM TUBE TOP SCH ×2 (10:26→20:54)
[2021-04-01] MEDS: Enoxaparin Sodium 40 MG/0.4 ML SYRINGE SC SCH ×2 (10:27→20:54)
[2021-04-01] MEDS ORDERED: Furosemide 40 MG/4 ML VIAL SLOW IVP SCH ×2 (10:45→17:45)
[2021-04-01] MEDS: ALPRAZolam 0.25 MG TAB PO PRN ×2 (11:00→18:09)
[2021-04-01] MEDS ORDERED: Potassium Chloride 20 MEQ TAB PO SCH (17:45)
[2021-04-02] MEDS: ALPRAZolam 0.25 MG TAB PO PRN ×3 (02:03→23:05)
[2021-04-02 04:47] LABS: #Basophils 0.1 10x3/uL (0.0-0.2); #Eosinphils 0.2 10x3/uL (0.0-0.5); #Monocytes 0.7 10x3/uL (0.0-1.1); %Basophils 0.7 % (0.0-2.0); %Eosinophils 1.4 % (0.0-6.0); %Lymphocytes 18.9 % (18.0-47.0); %Monocytes 6.4 % (0.0-10.0); %Neutrophils 69.1 % (40.0-75.0); Hemoglobin 13.5 g/dL (12.0-15.5); Mean Corpuscular HGB CONC 32.7 g/dL (32.0-36.0); Mean Corpuscular Hemoglobin 30.2 pg (27.0-33.0); Mean Corpuscular Volume 92.4 fl (81.6-98.3); Mean Platelet Volume 11.1 fl (7.4-10.4); Platelet Count 263 10x3/uL (150-450); RBC Distribution Width 14.1 % (11.5-14.5); Red Blood Cell (RBC) Count 4.47 10x6/uL (3.90-5.03); White Blood Cell (WBC) Count 11.5 10x3/uL (3.5-10.5)
[2021-04-02 05:00] LABS: BUN (Urea Nitrogen) 29 mg/dL (9.8-20.1); Calc. Creatinine Clearance 186 mL/min (70-130); Glucose 133 mg/dL (80-115); Magnesium 2.2 mg/dL (1.6-2.6)
[2021-04-02] MEDS: Levothyroxine Sodium 100 MCG TAB PO SCH (05:01)
[2021-04-02 05:05] LABS: Calcium 9.4 mg/dL (7.8-10.44); Carbon Dioxide Greater than 37 mmol/L (23-31); Chloride 91 mmol/L (98-107); Potassium 3.6 mmol/L (3.5-5.1); Sodium 139 mmol/L (136-145)
[2021-04-02 05:08] LABS: Anion Gap 18 mmol/L (10-20)
[2021-04-02] MEDS ORDERED: Furosemide 40 MG/4 ML VIAL SLOW IVP SCH (06:00)
[2021-04-02] MEDS: Nystatin Powder 15 GM BOT TOP SCH ×2 (09:55→21:30)
[2021-04-02] MEDS: Hydrocortisone 1% Cream 30 GM TUBE TOP SCH ×2 (09:55→21:23)
[2021-04-02] MEDS: Aspirin Chewable 81 MG TAB PO SCH (09:56)
[2021-04-02] MEDS: Famotidine/PF 20 mg/2ml Vial SLOW IVP SCH ×2 (09:56→21:23)
[2021-04-02] MEDS: Enoxaparin Sodium 40 MG/0.4 ML SYRINGE SC SCH (09:56)
[2021-04-02] MEDS: Lantus 1000 UNITS/10 ML VIAL SC SCH ×2 (09:56→21:24)
[2021-04-02] MEDS: Metoprolol Tartrate 50 MG TAB PO SCH ×2 (09:56→21:25)
[2021-04-02] MEDS: Potassium Bicarbonate/Cit Ac 20 MEQ TAB PO SCH (09:56)
[2021-04-02] MEDS: Insulin Regular 300 UNITS/3 ML VIAL SC PRN ×2 (12:44→17:11)
[2021-04-02] MEDS ORDERED: Enoxaparin Sodium 60 MG/0.6 ML SYRINGE SC SCH (21:00)
[2021-04-02] MEDS: Enoxaparin Sodium 60 MG/0.6 ML SYRINGE SC SCH (21:23)
[2021-04-03] MEDS: Levothyroxine Sodium 100 MCG TAB PO SCH (04:19)
[2021-04-03 05:13] LABS: BUN (Urea Nitrogen) 24 mg/dL (9.8-20.1); Calc. Creatinine Clearance 187 mL/min (70-130); Calcium 9.7 mg/dL (7.8-10.44); Glucose 144 mg/dL (80-115)
[2021-04-03 05:21] LABS: Anion Gap 17 mmol/L (10-20); Carbon Dioxide 36 mmol/L (23-31); Chloride 89 mmol/L (98-107); Potassium 3.5 mmol/L (3.5-5.1); Sodium 138 mmol/L (136-145)
[2021-04-03] MEDS: Lantus 1000 UNITS/10 ML VIAL SC SCH ×2 (09:00→20:55)
[2021-04-03] MEDS: ALPRAZolam 0.25 MG TAB PO PRN ×2 (09:05→19:41)
[2021-04-03] MEDS: Metoprolol Tartrate 50 MG TAB PO SCH ×2 (09:05→19:42)
[2021-04-03] MEDS: Potassium Bicarbonate/Cit Ac 20 MEQ TAB PO SCH (09:05)
[2021-04-03] MEDS: Aspirin Chewable 81 MG TAB PO SCH (09:05)
[2021-04-03] MEDS: Famotidine/PF 20 mg/2ml Vial SLOW IVP SCH ×2 (09:05→19:42)
[2021-04-03] MEDS: Hydrocortisone 1% Cream 30 GM TUBE TOP SCH ×2 (09:15→20:55)
[2021-04-03] MEDS: Nystatin Powder 15 GM BOT TOP SCH ×2 (09:15→20:54)
[2021-04-03] MEDS: Enoxaparin Sodium 60 MG/0.6 ML SYRINGE SC SCH (09:15)
[2021-04-03] MEDS: Acetaminophen 325 MG TAB PO PRN (19:41)
[2021-04-03] MEDS: Enoxaparin Sodium 40 MG/0.4 ML SYRINGE SC SCH (19:42)
[2021-04-03] MEDS: Insulin Regular 300 UNITS/3 ML VIAL SC PRN (21:43)
[2021-04-04] MEDS: Levothyroxine Sodium 100 MCG TAB PO SCH (05:03)
[2021-04-04] MEDS: ALPRAZolam 0.25 MG TAB PO PRN ×2 (05:03→14:11)
[2021-04-04] MEDS: Metoprolol Tartrate 50 MG TAB PO SCH ×2 (08:43→21:26)
[2021-04-04] MEDS: Potassium Bicarbonate/Cit Ac 20 MEQ TAB PO SCH (08:44)
[2021-04-04] MEDS: Acetaminophen 325 MG TAB PO PRN (08:44)
[2021-04-04] MEDS: Aspirin Chewable 81 MG TAB PO SCH (08:44)
[2021-04-04] MEDS: Famotidine/PF 20 mg/2ml Vial SLOW IVP SCH ×2 (08:44→21:26)
[2021-04-04] MEDS: Enoxaparin Sodium 40 MG/0.4 ML SYRINGE SC SCH ×2 (08:44→21:27)
[2021-04-04] MEDS: Lantus 1000 UNITS/10 ML VIAL SC SCH ×2 (08:45→21:28)
[2021-04-04] MEDS: Nystatin Powder 15 GM BOT TOP SCH ×2 (08:45→21:32)
[2021-04-04] MEDS: Hydrocortisone 1% Cream 30 GM TUBE TOP SCH ×2 (08:45→21:31)
[2021-04-05] MEDS: Levothyroxine Sodium 100 MCG TAB PO SCH (05:35)
[2021-04-05] MEDS: ALPRAZolam 0.25 MG TAB PO PRN ×3 (05:35→21:39)
[2021-04-05 06:58] LABS: #Basophils 0.1 10x3/uL (0.0-0.2); #Eosinphils 0.2 10x3/uL (0.0-0.5); #Monocytes 1.3 10x3/uL (0.0-1.1); #Neutrophils 8.2 10x3/uL (1.5-8.4); %Basophils 0.9 % (0.0-2.0); %Eosinophils 1.8 % (0.0-6.0); %Lymphocytes 18.7 % (18.0-47.0); %Monocytes 10.5 % (0.0-10.0); %Neutrophils 64.5 % (40.0-75.0); Hemoglobin 13.3 g/dL (12.0-15.5); Mean Corpuscular HGB CONC 33.8 g/dL (32.0-36.0); Mean Corpuscular Hemoglobin 30.6 pg (27.0-33.0); Mean Corpuscular Volume 90.8 fl (81.6-98.3); Mean Platelet Volume 11.2 fl (7.4-10.4); Platelet Count 258 10x3/uL (150-450); RBC Distribution Width 14.2 % (11.5-14.5); Red Blood Cell (RBC) Count 4.34 10x6/uL (3.90-5.03); White Blood Cell (WBC) Count 12.7 10x3/uL (3.5-10.5)
[2021-04-05 07:32] LABS: Anion Gap 13 mmol/L (10-20); BUN (Urea Nitrogen) 16 mg/dL (9.8-20.1); CRP (Inflammatory) 1.21 mg/dL (= or < 0.5); Calc. Creatinine Clearance 194 mL/min (70-130); Calcium 9.6 mg/dL (7.8-10.44); Carbon Dioxide 35 mmol/L (23-31); Chloride 91 mmol/L (98-107); Glucose 125 mg/dL (80-115); Potassium 3.3 mmol/L (3.5-5.1); Sodium 136 mmol/L (136-145)
[2021-04-05] MEDS: Metoprolol Tartrate 50 MG TAB PO SCH ×2 (09:00→21:39)
[2021-04-05] MEDS: Potassium Bicarbonate/Cit Ac 20 MEQ TAB PO SCH (09:00)
[2021-04-05] MEDS: Nystatin Powder 15 GM BOT TOP SCH ×2 (09:00→22:15)
[2021-04-05] MEDS: Aspirin Chewable 81 MG TAB PO SCH (09:00)
[2021-04-05] MEDS: Enoxaparin Sodium 40 MG/0.4 ML SYRINGE SC SCH ×2 (09:00→21:38)
[2021-04-05] MEDS: Lantus 1000 UNITS/10 ML VIAL SC SCH ×2 (09:00→22:16)
[2021-04-05] MEDS: Famotidine/PF 20 mg/2ml Vial SLOW IVP SCH ×2 (09:00→21:38)
[2021-04-05] MEDS: Hydrocortisone 1% Cream 30 GM TUBE TOP SCH ×2 (09:00→22:16)
[2021-04-05] MEDS ORDERED: Polyethylene Glycol 3350 17 GM Packet PO PRN (11:14)
[2021-04-05] MEDS ORDERED: Potassium Chloride 20 MEQ TAB PER TUBE SCH (11:15)
[2021-04-05] MEDS ORDERED: Furosemide 40 MG TAB PO SCH (13:15)
[2021-04-05] MEDS: Mirtazapine 15 MG TAB PO SCH (21:39)
[2021-04-05] MEDS: Insulin Regular 300 UNITS/3 ML VIAL SC PRN (22:16)
[2021-04-05] MEDS: Acetaminophen 325 MG TAB PO PRN (22:17)
[2021-04-06] MEDS: Levothyroxine Sodium 100 MCG TAB PO SCH (04:43)
[2021-04-06 06:10] LABS: #Basophils 0.1 10x3/uL (0.0-0.2); #Eosinphils 0.2 10x3/uL (0.0-0.5); #Monocytes 0.8 10x3/uL (0.0-1.1); #Neutrophils 5.6 10x3/uL (1.5-8.4); %Basophils 0.7 % (0.0-2.0); %Eosinophils 2.4 % (0.0-6.0); %Lymphocytes 25.2 % (18.0-47.0); %Monocytes 8.9 % (0.0-10.0); Mean Corpuscular HGB CONC 32.6 g/dL (32.0-36.0); Mean Corpuscular Hemoglobin 30.3 pg (27.0-33.0); Mean Platelet Volume 11.2 fl (7.4-10.4); Platelet Count 239 10x3/uL (150-450); RBC Distribution Width 14.5 % (11.5-14.5); Red Blood Cell (RBC) Count 4.29 10x6/uL (3.90-5.03); White Blood Cell (WBC) Count 9.4 10x3/uL (3.5-10.5)
[2021-04-06 06:24] LABS: BUN (Urea Nitrogen) 15 mg/dL (9.8-20.1); Calc. Creatinine Clearance 195 mL/min (70-130); Calcium 9.6 mg/dL (7.8-10.44); Glucose 118 mg/dL (80-115); Magnesium 2.1 mg/dL (1.6-2.6)
[2021-04-06 06:32] LABS: Anion Gap 17 mmol/L (10-20); Carbon Dioxide 32 mmol/L (23-31); Chloride 92 mmol/L (98-107); Sodium 138 mmol/L (136-145)
[2021-04-06] MEDS: Aspirin Chewable 81 MG TAB PO SCH (09:55)
[2021-04-06] MEDS: Enoxaparin Sodium 40 MG/0.4 ML SYRINGE SC SCH ×2 (09:55→21:12)
[2021-04-06] MEDS: Magnesium Oxide 400 MG TAB PO SCH (09:55)
[2021-04-06] MEDS: LACTINEX 1 TAB PO SCH (09:55)
[2021-04-06] MEDS: Potassium Bicarbonate/Cit Ac 20 MEQ TAB PO SCH (09:55)
[2021-04-06] MEDS: Famotidine/PF 20 mg/2ml Vial SLOW IVP SCH ×2 (09:55→21:12)
[2021-04-06] MEDS: Hydrocortisone 1% Cream 30 GM TUBE TOP SCH ×2 (09:56→21:13)
[2021-04-06] MEDS: Lantus 1000 UNITS/10 ML VIAL SC SCH ×2 (09:56→21:13)
[2021-04-06] MEDS: Nystatin Powder 15 GM BOT TOP SCH ×2 (09:56→21:13)
[2021-04-06] MEDS: Escitalopram Oxalate 20 mg Tablet PO SCH (09:56)
[2021-04-06] MEDS: Furosemide 40 MG TAB PO SCH (09:56)
[2021-04-06] MEDS: Metoprolol Tartrate 50 MG TAB PO SCH ×2 (09:56→21:13)
[2021-04-06] MEDS: ALPRAZolam 0.25 MG TAB PO PRN ×2 (09:58→21:13)
[2021-04-06] MEDS: Insulin Regular 300 UNITS/3 ML VIAL SC PRN ×2 (11:43→21:13)
[2021-04-06] MEDS: Mirtazapine 15 MG TAB PO SCH (21:13)
[2021-04-07] MEDS: Levothyroxine Sodium 100 MCG TAB PO SCH (05:59)
[2021-04-07 08:28] LABS: Anion Gap 14 mmol/L (10-20); BUN (Urea Nitrogen) 17 mg/dL (9.8-20.1); Calc. Creatinine Clearance 176 mL/min (70-130); Calcium 9.4 mg/dL (7.8-10.44); Carbon Dioxide 36 mmol/L (23-31); Chloride 90 mmol/L (98-107); Glucose 163 mg/dL (80-115); Magnesium 1.9 mg/dL (1.6-2.6); Potassium 3.1 mmol/L (3.5-5.1); Sodium 137 mmol/L (136-145)
[2021-04-07] MEDS: Enoxaparin Sodium 40 MG/0.4 ML SYRINGE SC SCH ×2 (13:27→20:41)
[2021-04-07] MEDS: Potassium Bicarbonate/Cit Ac 20 MEQ TAB PO SCH (13:27)
[2021-04-07] MEDS: Lantus 1000 UNITS/10 ML VIAL SC SCH ×2 (13:28→21:08)
[2021-04-07] MEDS: Famotidine/PF 20 mg/2ml Vial SLOW IVP SCH ×2 (13:28→20:41)
[2021-04-07] MEDS: ALPRAZolam 0.25 MG TAB PO PRN ×2 (13:29→21:54)
[2021-04-07] MEDS: Nystatin Powder 15 GM BOT TOP SCH ×2 (13:29→20:41)
[2021-04-07] MEDS: Hydrocortisone 1% Cream 30 GM TUBE TOP SCH ×2 (13:29→20:41)
[2021-04-07] MEDS: Escitalopram Oxalate 20 mg Tablet PO SCH (13:29)
[2021-04-07] MEDS: Metoprolol Tartrate 50 MG TAB PO SCH ×2 (13:29→20:41)
[2021-04-07] MEDS: Magnesium Oxide 400 MG TAB PO SCH (13:30)
[2021-04-07] MEDS: Aspirin Chewable 81 MG TAB PO SCH (13:30)
[2021-04-07] MEDS: Furosemide 40 MG TAB PO SCH (13:30)
[2021-04-07] MEDS: LACTINEX 1 TAB PO SCH (13:30)
[2021-04-07] MEDS: Mirtazapine 15 MG TAB PO SCH (20:42)
[2021-04-07] MEDS ORDERED: Potassium Chloride 20 MEQ TAB PO SCH (21:00)
[2021-04-08] MEDS: Levothyroxine Sodium 100 MCG TAB PO SCH (05:27)
[2021-04-08 06:01] LABS: BUN (Urea Nitrogen) 11 mg/dL (9.8-20.1); Calc. Creatinine Clearance 186 mL/min (70-130); Calcium 9.5 mg/dL (7.8-10.44); Glucose 94 mg/dL (80-115)
[2021-04-08 06:08] LABS: Anion Gap 18 mmol/L (10-20); Carbon Dioxide 32 mmol/L (23-31); Chloride 93 mmol/L (98-107); Potassium 3.3 mmol/L (3.5-5.1); Sodium 140 mmol/L (136-145)
[2021-04-08] MEDS ORDERED: Senokot S 8.6-50 MG TAB PER TUBE PRN (08:15)
[2021-04-08] MEDS ORDERED: Polyethylene Glycol 3350 17 GM Packet PER TUBE PRN (08:15)
[2021-04-08] MEDS: LACTINEX 1 TAB PER TUBE SCH (08:18)
[2021-04-08] MEDS: Aspirin Chewable 81 MG TAB PER TUBE SCH (08:18)
[2021-04-08] MEDS: Escitalopram Oxalate 20 mg Tablet PER TUBE SCH (08:18)
[2021-04-08] MEDS: Pantoprazole 40 MG GRANULES PACKET PER TUBE SCH (08:19)
[2021-04-08] MEDS: Famotidine/PF 20 mg/2ml Vial SLOW IVP SCH ×2 (08:19→21:06)
[2021-04-08] MEDS: Metoprolol Tartrate 50 MG TAB PER TUBE SCH ×2 (08:19→21:04)
[2021-04-08] MEDS: Enoxaparin Sodium 40 MG/0.4 ML SYRINGE SC SCH ×2 (08:19→21:14)
[2021-04-08] MEDS: Magnesium Oxide 400 MG TAB PER TUBE SCH (08:19)
[2021-04-08] MEDS: Hydrocortisone 1% Cream 30 GM TUBE TOP SCH ×2 (08:20→22:00)
[2021-04-08] MEDS: Nystatin Powder 15 GM BOT TOP SCH ×2 (08:20→22:00)
[2021-04-08] MEDS: Lantus 1000 UNITS/10 ML VIAL SC SCH ×2 (08:20→22:18)
[2021-04-08] MEDS: Loperamide HCl 1 MG/7.5 ML UDCUP PER TUBE PRN (08:23)
[2021-04-08] MEDS ORDERED: Furosemide 40 MG TAB PER TUBE SCH (09:00)
[2021-04-08] MEDS ORDERED: Potassium Chloride 20 MEQ TAB PO SCH (16:00)
[2021-04-08] MEDS: Mirtazapine 15 MG TAB PER TUBE SCH (21:04)
[2021-04-08] MEDS: Acetaminophen 325 MG TAB PER TUBE PRN (21:05)
[2021-04-09] MEDS: Acetaminophen 325 MG TAB PER TUBE PRN ×2 (03:42→22:35)
[2021-04-09 06:50] LABS: BUN (Urea Nitrogen) 15 mg/dL (9.8-20.1); Calc. Creatinine Clearance 178 mL/min (70-130); Calcium 9.9 mg/dL (7.8-10.44); Glucose 108 mg/dL (80-115)
[2021-04-09] MEDS: Levothyroxine Sodium 100 MCG TAB PER TUBE SCH (06:50)
[2021-04-09 06:57] LABS: Anion Gap 16 mmol/L (10-20); Carbon Dioxide 34 mmol/L (23-31); Chloride 92 mmol/L (98-107); Potassium 3.2 mmol/L (3.5-5.1); Sodium 139 mmol/L (136-145)
[2021-04-09] MEDS: Metoprolol Tartrate 50 MG TAB PER TUBE SCH ×2 (08:52→22:05)
[2021-04-09] MEDS: Furosemide 20 MG TAB PER TUBE SCH (08:52)
[2021-04-09] MEDS: LACTINEX 1 TAB PER TUBE SCH (08:52)
[2021-04-09] MEDS: Famotidine/PF 20 mg/2ml Vial SLOW IVP SCH ×2 (08:52→22:05)
[2021-04-09] MEDS: Enoxaparin Sodium 40 MG/0.4 ML SYRINGE SC SCH (08:52)
[2021-04-09] MEDS: Escitalopram Oxalate 20 mg Tablet PER TUBE SCH (08:52)
[2021-04-09] MEDS: Nystatin Powder 15 GM BOT TOP SCH ×2 (08:53→23:03)
[2021-04-09] MEDS: Aspirin Chewable 81 MG TAB PER TUBE SCH (08:53)
[2021-04-09] MEDS: Pantoprazole 40 MG GRANULES PACKET PER TUBE SCH (08:53)
[2021-04-09] MEDS: ALPRAZolam 0.25 MG TAB PER TUBE PRN ×2 (08:53→17:19)
[2021-04-09] MEDS: Magnesium Oxide 400 MG TAB PER TUBE SCH (08:53)
[2021-04-09] MEDS: Lantus 1000 UNITS/10 ML VIAL SC SCH ×2 (08:54→22:04)
[2021-04-09] MEDS: Hydrocortisone 1% Cream 30 GM TUBE TOP SCH ×2 (08:54→23:03)
[2021-04-09] MEDS ORDERED: Potassium Chloride 20 MEQ TAB PO SCH (10:15)
[2021-04-09] MEDS: Insulin Regular 300 UNITS/3 ML VIAL SC PRN ×2 (17:19→23:00)
[2021-04-09] MEDS: Mirtazapine 15 MG TAB PER TUBE SCH (22:05)
[2021-04-10] MEDS: Levothyroxine Sodium 100 MCG TAB PER TUBE SCH (06:13)
[2021-04-10 06:51] LABS: Anion Gap 12 mmol/L (10-20); BUN (Urea Nitrogen) 17 mg/dL (9.8-20.1); Calc. Creatinine Clearance 175 mL/min (70-130); Calcium 9.5 mg/dL (7.8-10.44); Carbon Dioxide 36 mmol/L (23-31); Chloride 94 mmol/L (98-107); Glucose 102 mg/dL (80-115); Potassium 3.4 mmol/L (3.5-5.1); Sodium 139 mmol/L (136-145)
[2021-04-10] MEDS: Acetaminophen 325 MG TAB PER TUBE PRN (07:15)
[2021-04-10] MEDS: ALPRAZolam 0.25 MG TAB PER TUBE PRN (07:16)
[2021-04-10] MEDS: Magnesium Oxide 400 MG TAB PER TUBE SCH (08:25)
[2021-04-10] MEDS: Famotidine/PF 20 mg/2ml Vial SLOW IVP SCH ×2 (08:25→20:38)
[2021-04-10] MEDS: Furosemide 20 MG TAB PER TUBE SCH (08:25)
[2021-04-10] MEDS: Aspirin Chewable 81 MG TAB PER TUBE SCH (08:25)
[2021-04-10] MEDS: Metoprolol Tartrate 50 MG TAB PER TUBE SCH ×2 (08:25→20:39)
[2021-04-10] MEDS: Pantoprazole 40 MG GRANULES PACKET PER TUBE SCH (08:25)
[2021-04-10] MEDS: LACTINEX 1 TAB PER TUBE SCH (08:25)
[2021-04-10] MEDS: Escitalopram Oxalate 20 mg Tablet PER TUBE SCH (08:25)
[2021-04-10] MEDS: Enoxaparin Sodium 40 MG/0.4 ML SYRINGE SC SCH (08:26)
[2021-04-10] MEDS: Hydrocortisone 1% Cream 30 GM TUBE TOP SCH ×2 (08:28→20:39)
[2021-04-10] MEDS: Lantus 1000 UNITS/10 ML VIAL SC SCH ×2 (08:28→20:39)
[2021-04-10] MEDS: Nystatin Powder 15 GM BOT TOP SCH ×2 (08:28→20:40)
[2021-04-10] MEDS ORDERED: Furosemide 40 MG/4 ML VIAL ONE (12:32)
[2021-04-10 13:01] LABS: Actual Bicarbonate (HCO3a) 35.6 mEq/L (22-28); Base Excess (BEa) 7.6 mEq/L (-2.0 to +3.0); CO2 Tension 65.7 mmHg (35.0-45.0); Calcium, Ionized (arterial) 1.12 mmol/L (1.12-1.30); Hemoglobin (Hb) 14.2 g/dL (12.0-16.0); O2 Tension (PaO2), arterial 113.6 mmHg (> 80.0); Potassium - ABG Lab 3.3 mmol/L (3.70-5.30); Puncture Site RRA; pH, Arterial 7.35 (7.35-7.45)
[2021-04-10 13:05] LABS: ALV-art Gradient 517.275 mmHg (0-20)
[2021-04-10 13:14] LABS: #Monocytes 0.5 10x3/uL (0.0-1.1); #Neutrophils 7.3 10x3/uL (1.5-8.4); %Basophils 0.3 % (0.0-2.0); %Eosinophils 0.1 % (0.0-6.0); %Lymphocytes 11.2 % (18.0-47.0); %Neutrophils 81.6 % (40.0-75.0); Hemoglobin 14.5 g/dL (12.0-15.5); Mean Corpuscular HGB CONC 32.2 g/dL (32.0-36.0); Mean Corpuscular Hemoglobin 30.5 pg (27.0-33.0); Mean Corpuscular Volume 94.9 fl (81.6-98.3); Mean Platelet Volume 10.3 fl (7.4-10.4); Platelet Count 156 10x3/uL (150-450); RBC Distribution Width 15.2 % (11.5-14.5); Red Blood Cell (RBC) Count 4.75 10x6/uL (3.90-5.03); White Blood Cell (WBC) Count 8.9 10x3/uL (3.5-10.5)
[2021-04-10] MEDS ORDERED: Furosemide 40 MG/4 ML VIAL SLOW IVP SCH (13:45)
[2021-04-10 13:46] LABS: CKMB 2.1 ng/mL (0-6.6)
[2021-04-10 13:50] LABS: Bilirubin Neg (Negative); Blood, Urine 250 (Negative); Clarity Cloudy (Clear); Glucose, Urine (Dipstick) Normal (Negative); Ketone, Urine Negative (Negative); Leukocyte 500 (Negative); Nitrite Negative (Negative); Protein, Urine (Dipstick) 100 mg/dl (Neg-Trace); Specific Gravity, Urine 1.015 (1.002-1.036)
[2021-04-10 13:56] LABS: Urine Culture Reflex No No
[2021-04-10 14:01] LABS: Squamous Epithelial 0-3 HPF (0-3)
[2021-04-10 14:02] LABS: Bacteria/HPF 4+ HPF (None Seen); Triple Phosphate Crystal Rare HPF (None Seen)
[2021-04-10] MEDS ORDERED: methylPREDNISolone Sod Succ 40 MG VIAL IVP SCH (15:15)
[2021-04-10] MEDS ORDERED: Potassium Chloride 10 MEQ in Premix Bag 1 BAG IVPB SCH (15:30)
[2021-04-10] MEDS: metroNIDAZOLE 500 MG in Premix Bag 1 BAG IVPB SCH ×2 (16:57→23:30)
[2021-04-10] MEDS: Insulin Regular 300 UNITS/3 ML VIAL SC PRN ×2 (17:34→22:03)
[2021-04-10] MEDS: methylPREDNISolone Sod Succ 40 MG VIAL IVP SCH (20:39)
[2021-04-10] MEDS: Mirtazapine 15 MG TAB PER TUBE SCH (21:11)
[2021-04-11 03:38] LABS: Actual Bicarbonate (HCO3a) 33.9 mEq/L (22-28); CO2 Tension 47.8 mmHg (35.0-45.0); Calcium, Ionized (arterial) 1.14 mmol/L (1.12-1.30); Carboxyhemoglobin (COHb) 0.2 gm% (0.0-3.0); Hemoglobin (Hb) 12.3 g/dL (12.0-16.0); O2 Tension (PaO2), arterial 233.1 mmHg (> 80.0); Potassium - ABG Lab 3.8 mmol/L (3.70-5.30); Puncture Site RRA; pH, Arterial 7.47 (7.35-7.45)
[2021-04-11 04:55] LABS: Anion Gap 14 mmol/L (10-20); BUN (Urea Nitrogen) 18 mg/dL (9.8-20.1); CRP (Inflammatory) 12.05 mg/dL (= or < 0.5); Calc. Creatinine Clearance 174 mL/min (70-130); Calcium 9.9 mg/dL (7.8-10.44); Carbon Dioxide 36 mmol/L (23-31); Chloride 93 mmol/L (98-107); Glucose 206 mg/dL (80-115); Sodium 139 mmol/L (136-145)
[2021-04-11 04:58] LABS: #Monocytes 0.3 10x3/uL (0.0-1.1); #Neutrophils 4.4 10x3/uL (1.5-8.4); %Basophils 0.4 % (0.0-2.0); %Lymphocytes 15.5 % (18.0-47.0); %Monocytes 5.3 % (0.0-10.0); Hemoglobin 12.7 g/dL (12.0-15.5); Mean Corpuscular HGB CONC 32.2 g/dL (32.0-36.0); Mean Corpuscular Hemoglobin 29.9 pg (27.0-33.0); Mean Corpuscular Volume 92.7 fl (81.6-98.3); Mean Platelet Volume 10.1 fl (7.4-10.4); Platelet Count 140 10x3/uL (150-450); RBC Distribution Width 14.8 % (11.5-14.5); Red Blood Cell (RBC) Count 4.25 10x6/uL (3.90-5.03); White Blood Cell (WBC) Count 5.7 10x3/uL (3.5-10.5)
[2021-04-11] MEDS: Levothyroxine Sodium 100 MCG TAB PER TUBE SCH (05:13)
[2021-04-11] MEDS: Insulin Regular 300 UNITS/3 ML VIAL SC PRN ×3 (05:15→16:11)
[2021-04-11] MEDS ORDERED: Furosemide 40 MG/4 ML VIAL SLOW IVP SCH (06:00)
[2021-04-11 07:59] LABS: Troponin I 0.029 ng/mL (< 0.028)
[2021-04-11] MEDS: Aspirin Chewable 81 MG TAB PER TUBE SCH (08:40)
[2021-04-11] MEDS: metroNIDAZOLE 500 MG in Premix Bag 1 BAG IVPB SCH (08:44)
[2021-04-11] MEDS: Enoxaparin Sodium 40 MG/0.4 ML SYRINGE SC SCH (08:45)
[2021-04-11] MEDS: Escitalopram Oxalate 20 mg Tablet PER TUBE SCH (08:46)
[2021-04-11] MEDS: Famotidine/PF 20 mg/2ml Vial SLOW IVP SCH ×2 (08:46→20:58)
[2021-04-11] MEDS: Lantus 1000 UNITS/10 ML VIAL SC SCH ×2 (08:47→20:58)
[2021-04-11] MEDS: Magnesium Oxide 400 MG TAB PER TUBE SCH (08:50)
[2021-04-11] MEDS: methylPREDNISolone Sod Succ 40 MG VIAL IVP SCH ×2 (08:51→21:00)
[2021-04-11] MEDS: Metoprolol Tartrate 50 MG TAB PER TUBE SCH ×2 (08:52→21:01)
[2021-04-11] MEDS: Pantoprazole 40 MG GRANULES PACKET PER TUBE SCH (08:53)
[2021-04-11] MEDS: Floranex 1 GM Packet PER TUBE SCH (09:44)
[2021-04-11] MEDS: Hydrocortisone 1% Cream 30 GM TUBE TOP SCH ×2 (09:44→20:58)
[2021-04-11] MEDS: Nystatin Powder 15 GM BOT TOP SCH ×2 (09:44→21:01)
[2021-04-11] MEDS ORDERED: VANCOMYCIN 2 GRAM/400 ML BAG 2 GM in Premix Bag 1 BAG IVPB SCH (11:00)
[2021-04-11] MEDS: Cefepime 2 GM in Sodium Chloride 0.9% 100 ML IVPB SCH ×2 (11:56→23:16)
[2021-04-11] MEDS: Furosemide 20 MG/2 ML VIAL SLOW IVP SCH (13:38)
[2021-04-11] MEDS: ALPRAZolam 0.25 MG TAB PER TUBE PRN (16:02)
[2021-04-11] MEDS: Mirtazapine 15 MG TAB PER TUBE SCH (21:01)
[2021-04-11] MEDS: VANCOMYCIN 1.25 GM/250 ML BAG 1.25 GM in Premix Bag 1 BAG IVPB SCH (23:41)
[2021-04-12 04:47] LABS: #Monocytes 0.6 10x3/uL (0.0-1.1); #Neutrophils 6.1 10x3/uL (1.5-8.4); %Basophils 0.4 % (0.0-2.0); %Lymphocytes 14.5 % (18.0-47.0); %Neutrophils 76.1 % (40.0-75.0); Hemoglobin 12.4 g/dL (12.0-15.5); Mean Corpuscular HGB CONC 33.1 g/dL (32.0-36.0); Mean Corpuscular Hemoglobin 30.2 pg (27.0-33.0); Mean Corpuscular Volume 91.5 fl (81.6-98.3); Mean Platelet Volume 10.5 fl (7.4-10.4); Platelet Count 144 10x3/uL (150-450); RBC Distribution Width 14.4 % (11.5-14.5)
[2021-04-12 04:51] LABS: Anion Gap 14 mmol/L (10-20); BUN (Urea Nitrogen) 20 mg/dL (9.8-20.1); CRP (Inflammatory) 5.41 mg/dL (= or < 0.5); Calc. Creatinine Clearance 167 mL/min (70-130); Carbon Dioxide 36 mmol/L (23-31); Chloride 93 mmol/L (98-107); Glucose 180 mg/dL (80-115); Potassium 3.6 mmol/L (3.5-5.1); Sodium 139 mmol/L (136-145)
[2021-04-12] MEDS: Furosemide 20 MG/2 ML VIAL SLOW IVP SCH (05:00)
[2021-04-12] MEDS: Insulin Regular 300 UNITS/3 ML VIAL SC PRN (05:01)
[2021-04-12] MEDS: Levothyroxine Sodium 100 MCG TAB PER TUBE SCH (06:06)
[2021-04-12] MEDS: Magnesium Oxide 400 MG TAB PER TUBE SCH (08:48)
[2021-04-12] MEDS: Pantoprazole 40 MG GRANULES PACKET PER TUBE SCH (08:48)
[2021-04-12] MEDS: Aspirin Chewable 81 MG TAB PER TUBE SCH (08:48)
[2021-04-12] MEDS: Metoprolol Tartrate 50 MG TAB PER TUBE SCH ×2 (08:49→20:30)
[2021-04-12] MEDS: Escitalopram Oxalate 20 mg Tablet PER TUBE SCH (08:49)
[2021-04-12] MEDS: Furosemide 20 MG TAB PO SCH (08:49)
[2021-04-12] MEDS: Enoxaparin Sodium 40 MG/0.4 ML SYRINGE SC SCH (08:49)
[2021-04-12] MEDS: Lantus 1000 UNITS/10 ML VIAL SC SCH ×2 (08:54→21:31)
[2021-04-12] MEDS: Hydrocortisone 1% Cream 30 GM TUBE TOP SCH ×2 (08:55→21:45)
[2021-04-12] MEDS: methylPREDNISolone Sod Succ 40 MG VIAL IVP SCH ×2 (08:55→20:29)
[2021-04-12] MEDS: Famotidine/PF 20 mg/2ml Vial SLOW IVP SCH ×2 (08:55→20:29)
[2021-04-12] MEDS: Nystatin Powder 15 GM BOT TOP SCH ×2 (09:48→21:25)
[2021-04-12] MEDS: Floranex 1 GM Packet PER TUBE SCH (09:49)
[2021-04-12] MEDS: ALPRAZolam 0.25 MG TAB PER TUBE PRN ×2 (11:23→20:30)
[2021-04-12] MEDS: Cefepime 2 GM in Sodium Chloride 0.9% 100 ML IVPB SCH (11:49)
[2021-04-12] MEDS: VANCOMYCIN 1.25 GM/250 ML BAG 1.25 GM in Premix Bag 1 BAG IVPB SCH (11:50)
[2021-04-12] MEDS: Mirtazapine 15 MG TAB PER TUBE SCH (20:30)
[2021-04-12] MEDS ORDERED: VANCOMYCIN 1.25 GM/250 ML BAG 1.25 GM in Premix Bag 1 BAG IVPB SCH (23:00)
[2021-04-12] MEDS: Cefepime 1 GM in Sodium Chloride 0.9% 100 ML IVPB SCH (23:43)
[2021-04-13] MEDS: Insulin Regular 300 UNITS/3 ML VIAL SC PRN ×3 (05:03→15:39)
[2021-04-13 05:16] LABS: #Monocytes 0.4 10x3/uL (0.0-1.1); #Neutrophils 4.4 10x3/uL (1.5-8.4); %Basophils 0.2 % (0.0-2.0); %Lymphocytes 19.6 % (18.0-47.0); %Neutrophils 72.4 % (40.0-75.0); Hemoglobin 12.6 g/dL (12.0-15.5); Mean Corpuscular HGB CONC 32.2 g/dL (32.0-36.0); Mean Corpuscular Volume 93.1 fl (81.6-98.3); Mean Platelet Volume 10.2 fl (7.4-10.4); Platelet Count 149 10x3/uL (150-450); RBC Distribution Width 14.6 % (11.5-14.5); White Blood Cell (WBC) Count 6.1 10x3/uL (3.5-10.5)
[2021-04-13 05:28] LABS: Anion Gap 13 mmol/L (10-20); BUN (Urea Nitrogen) 25 mg/dL (9.8-20.1); CRP (Inflammatory) 2.33 mg/dL (= or < 0.5); Calc. Creatinine Clearance 176 mL/min (70-130); Calcium 9.8 mg/dL (7.8-10.44); Carbon Dioxide 33 mmol/L (23-31); Chloride 95 mmol/L (98-107); Glucose 193 mg/dL (80-115); Potassium 3.4 mmol/L (3.5-5.1); Sodium 138 mmol/L (136-145)
[2021-04-13] MEDS: Levothyroxine Sodium 100 MCG TAB PER TUBE SCH (06:33)
[2021-04-13] MEDS: Hydrocortisone 1% Cream 30 GM TUBE TOP SCH ×2 (09:39→23:01)
[2021-04-13] MEDS: Escitalopram Oxalate 20 mg Tablet PER TUBE SCH (09:46)
[2021-04-13] MEDS: Magnesium Oxide 400 MG TAB PER TUBE SCH (09:46)
[2021-04-13] MEDS: Cefepime 1 GM in Sodium Chloride 0.9% 100 ML IVPB SCH ×2 (09:46→23:42)
[2021-04-13] MEDS: Pantoprazole 40 MG GRANULES PACKET PER TUBE SCH (09:46)
[2021-04-13] MEDS: Furosemide 20 MG TAB PO SCH (09:46)
[2021-04-13] MEDS: methylPREDNISolone Sod Succ 40 MG VIAL IVP SCH ×2 (09:46→21:11)
[2021-04-13] MEDS: Aspirin Chewable 81 MG TAB PER TUBE SCH (09:46)
[2021-04-13] MEDS: Lantus 1000 UNITS/10 ML VIAL SC SCH ×2 (09:46→21:10)
[2021-04-13] MEDS: Metoprolol Tartrate 50 MG TAB PER TUBE SCH ×2 (09:46→21:08)
[2021-04-13] MEDS: Famotidine/PF 20 mg/2ml Vial SLOW IVP SCH ×2 (09:46→21:08)
[2021-04-13] MEDS: Nystatin Powder 15 GM BOT TOP SCH ×2 (09:47→21:10)
[2021-04-13] MEDS: Enoxaparin Sodium 40 MG/0.4 ML SYRINGE SC SCH (09:47)
[2021-04-13] MEDS: Floranex 1 GM Packet PER TUBE SCH (09:51)
[2021-04-13 10:11] LABS: Vancomycin, Trough 19.9 ug/mL
[2021-04-13] MEDS: ALPRAZolam 0.25 MG TAB PER TUBE PRN (21:08)
[2021-04-13] MEDS: Mirtazapine 15 MG TAB PER TUBE SCH (21:08)
[2021-04-14] MEDS: Insulin Regular 300 UNITS/3 ML VIAL SC PRN ×3 (04:25→17:35)
[2021-04-14] MEDS: Levothyroxine Sodium 100 MCG TAB PER TUBE SCH (06:10)
[2021-04-14 08:27] LABS: #Monocytes 0.5 10x3/uL (0.0-1.1); #Neutrophils 3.9 10x3/uL (1.5-8.4); %Basophils 0.5 % (0.0-2.0); %Lymphocytes 20.9 % (18.0-47.0); %Monocytes 7.8 % (0.0-10.0); %Neutrophils 68.2 % (40.0-75.0); Hemoglobin 12.7 g/dL (12.0-15.5); Mean Corpuscular HGB CONC 32.7 g/dL (32.0-36.0); Mean Corpuscular Hemoglobin 30.2 pg (27.0-33.0); Mean Corpuscular Volume 92.2 fl (81.6-98.3); Mean Platelet Volume 10.3 fl (7.4-10.4); Platelet Count 174 10x3/uL (150-450); RBC Distribution Width 14.6 % (11.5-14.5); Red Blood Cell (RBC) Count 4.21 10x6/uL (3.90-5.03); White Blood Cell (WBC) Count 5.8 10x3/uL (3.5-10.5)
[2021-04-14 08:39] LABS: Anion Gap 15 mmol/L (10-20); BUN (Urea Nitrogen) 22 mg/dL (9.8-20.1); CRP (Inflammatory) 0.88 mg/dL (= or < 0.5); Calc. Creatinine Clearance 201 mL/min (70-130); Calcium 9.5 mg/dL (7.8-10.44); Carbon Dioxide 34 mmol/L (23-31); Chloride 96 mmol/L (98-107); Glucose 152 mg/dL (80-115); Potassium 3.6 mmol/L (3.5-5.1); Sodium 141 mmol/L (136-145)
[2021-04-14] MEDS: Aspirin Chewable 81 MG TAB PER TUBE SCH (09:24)
[2021-04-14] MEDS: Magnesium Oxide 400 MG TAB PER TUBE SCH (09:24)
[2021-04-14] MEDS: Metoprolol Tartrate 50 MG TAB PER TUBE SCH ×2 (09:24→20:36)
[2021-04-14] MEDS: Escitalopram Oxalate 20 mg Tablet PER TUBE SCH (09:24)
[2021-04-14] MEDS: Enoxaparin Sodium 40 MG/0.4 ML SYRINGE SC SCH (09:24)
[2021-04-14] MEDS: ALPRAZolam 0.25 MG TAB PER TUBE PRN ×2 (09:24→20:36)
[2021-04-14] MEDS: Furosemide 20 MG TAB PO SCH (09:24)
[2021-04-14] MEDS: Pantoprazole 40 MG GRANULES PACKET PER TUBE SCH (09:24)
[2021-04-14] MEDS: Hydrocortisone 1% Cream 30 GM TUBE TOP SCH ×2 (09:25→20:37)
[2021-04-14] MEDS: Famotidine/PF 20 mg/2ml Vial SLOW IVP SCH ×2 (09:25→20:36)
[2021-04-14] MEDS: methylPREDNISolone Sod Succ 40 MG VIAL IVP SCH ×2 (09:25→20:36)
[2021-04-14] MEDS: Lantus 1000 UNITS/10 ML VIAL SC SCH ×2 (09:25→21:02)
[2021-04-14] MEDS: Nystatin Powder 15 GM BOT TOP SCH ×2 (09:25→20:37)
[2021-04-14] MEDS: Floranex 1 GM Packet PER TUBE SCH (09:26)
[2021-04-14] MEDS: Cefepime 1 GM in Sodium Chloride 0.9% 100 ML IVPB SCH ×2 (12:07→23:39)
[2021-04-14] MEDS: Mirtazapine 15 MG TAB PER TUBE SCH (20:36)
[2021-04-15] MEDS: Levothyroxine Sodium 100 MCG TAB PER TUBE SCH (05:01)
[2021-04-15] MEDS: ALPRAZolam 0.25 MG TAB PER TUBE PRN ×3 (05:03→14:29)
[2021-04-15] MEDS: Acetaminophen 325 MG TAB PER TUBE PRN ×2 (08:20→20:39)
[2021-04-15] MEDS: Aspirin Chewable 81 MG TAB PER TUBE SCH (08:20)
[2021-04-15] MEDS: LACTINEX 1 TAB PER TUBE SCH (08:21)
[2021-04-15] MEDS: Pantoprazole 40 MG GRANULES PACKET PER TUBE SCH (08:21)
[2021-04-15] MEDS: Loperamide HCl 1 MG/7.5 ML UDCUP PER TUBE PRN (08:21)
[2021-04-15] MEDS: Furosemide 20 MG TAB PO SCH (08:21)
[2021-04-15] MEDS: Escitalopram Oxalate 20 mg Tablet PER TUBE SCH (08:21)
[2021-04-15] MEDS: Magnesium Oxide 400 MG TAB PER TUBE SCH (08:21)
[2021-04-15] MEDS: Metoprolol Tartrate 50 MG TAB PER TUBE SCH ×2 (08:21→20:39)
[2021-04-15] MEDS: Hydrocortisone 1% Cream 30 GM TUBE TOP SCH ×2 (08:22→20:39)
[2021-04-15] MEDS: Nystatin Powder 15 GM BOT TOP SCH ×2 (08:22→20:42)
[2021-04-15] MEDS: Famotidine/PF 20 mg/2ml Vial SLOW IVP SCH ×2 (08:22→20:38)
[2021-04-15] MEDS: Enoxaparin Sodium 40 MG/0.4 ML SYRINGE SC SCH (08:22)
[2021-04-15] MEDS: Lantus 1000 UNITS/10 ML VIAL SC SCH ×2 (08:22→21:50)
[2021-04-15] MEDS: methylPREDNISolone Sod Succ 40 MG VIAL IVP SCH ×2 (08:22→20:38)
[2021-04-15] MEDS: Cefepime 1 GM in Sodium Chloride 0.9% 100 ML IVPB SCH ×2 (11:01→22:43)
[2021-04-15] MEDS: Mirtazapine 15 MG TAB PER TUBE SCH (20:39)
[2021-04-16] MEDS: ALPRAZolam 0.25 MG TAB PER TUBE PRN ×3 (03:00→20:59)
[2021-04-16] MEDS: Levothyroxine Sodium 100 MCG TAB PER TUBE SCH (05:15)
[2021-04-16 05:49] LABS: Anion Gap 12 mmol/L (10-20); BUN (Urea Nitrogen) 18 mg/dL (9.8-20.1); Calc. Creatinine Clearance 201 mL/min (70-130); Calcium 9.4 mg/dL (7.8-10.44); Carbon Dioxide 37 mmol/L (23-31); Chloride 99 mmol/L (98-107); Glucose 116 mg/dL (80-115); Potassium 3.7 mmol/L (3.5-5.1); Sodium 144 mmol/L (136-145)
[2021-04-16] MEDS: Aspirin Chewable 81 MG TAB PER TUBE SCH (08:36)
[2021-04-16] MEDS: Furosemide 20 MG TAB PO SCH (08:36)
[2021-04-16] MEDS: Magnesium Oxide 400 MG TAB PER TUBE SCH (08:36)
[2021-04-16] MEDS: Cefepime 1 GM in Sodium Chloride 0.9% 100 ML IVPB SCH ×2 (08:36→23:23)
[2021-04-16] MEDS: Metoprolol Tartrate 50 MG TAB PER TUBE SCH ×2 (08:36→20:59)
[2021-04-16] MEDS: Pantoprazole 40 MG GRANULES PACKET PER TUBE SCH (08:36)
[2021-04-16] MEDS: Loperamide HCl 1 MG/7.5 ML UDCUP PER TUBE PRN (08:36)
[2021-04-16] MEDS: LACTINEX 1 TAB PER TUBE SCH (08:36)
[2021-04-16] MEDS: Escitalopram Oxalate 20 mg Tablet PER TUBE SCH (08:36)
[2021-04-16] MEDS: Acetaminophen 325 MG TAB PER TUBE PRN (08:36)
[2021-04-16] MEDS: Enoxaparin Sodium 40 MG/0.4 ML SYRINGE SC SCH (08:37)
[2021-04-16] MEDS: Hydrocortisone 1% Cream 30 GM TUBE TOP SCH ×2 (08:37→21:14)
[2021-04-16] MEDS: Famotidine/PF 20 mg/2ml Vial SLOW IVP SCH ×2 (08:37→20:58)
[2021-04-16] MEDS: Lantus 1000 UNITS/10 ML VIAL SC SCH ×2 (08:38→21:14)
[2021-04-16] MEDS: Nystatin Powder 15 GM BOT TOP SCH ×2 (09:04→21:14)
[2021-04-16] MEDS: methylPREDNISolone Sod Succ 40 MG VIAL IVP SCH (09:04)
[2021-04-16] MEDS: Insulin Regular 300 UNITS/3 ML VIAL SC PRN ×2 (12:27→16:31)
[2021-04-16] MEDS: Mirtazapine 15 MG TAB PER TUBE SCH (20:58)
[2021-04-17] MEDS: Levothyroxine Sodium 100 MCG TAB PER TUBE SCH (05:17)
[2021-04-17] MEDS: Acetaminophen 325 MG TAB PER TUBE PRN (05:18)
[2021-04-17 05:25] LABS: Hemoglobin 13.1 g/dL (12.0-15.5); Mean Corpuscular HGB CONC 32.8 g/dL (32.0-36.0); Mean Corpuscular Hemoglobin 30.5 pg (27.0-33.0); Mean Corpuscular Volume 92.8 fl (81.6-98.3); Mean Platelet Volume 9.5 fl (7.4-10.4); Platelet Count 234 10x3/uL (150-450); RBC Distribution Width 14.9 % (11.5-14.5); White Blood Cell (WBC) Count 9.4 10x3/uL (3.5-10.5)
[2021-04-17 05:36] LABS: Anion Gap 12 mmol/L (10-20); BUN (Urea Nitrogen) 15 mg/dL (9.8-20.1); Calc. Creatinine Clearance 209 mL/min (70-130); Calcium 9.2 mg/dL (7.8-10.44); Carbon Dioxide 37 mmol/L (23-31); Chloride 100 mmol/L (98-107); Potassium 3.1 mmol/L (3.5-5.1); Sodium 146 mmol/L (136-145)
[2021-04-17 05:58] LABS: Glucose 53 mg/dL (80-115)
[2021-04-17 06:35] LABS: Band 5 % (5-11); Eosinophils 1 % (0-10); Lymphocytes 26 % (21-51); Monocytes 6 % (0-10); Myelocyte 1 % (0-0); Reactive Lymphocytes 11 % (0-10)
[2021-04-17 06:36] LABS: Anisocytosis SLIGHT = 6-15 cells (100X) (0-5/hpf); Microcytosis SLIGHT = 6-15 cells (100X) (0-5/hpf); Neutrophil 50 % (42-75)
[2021-04-17 06:37] LABS: Large Platelets SLIGHT; Platelet Clumps SLIGHT; Platelet Morphology Comment Appears Adequate
[2021-04-17 06:38] LABS: MDiff Complete? YES; Manual Diff?? YES
[2021-04-17] MEDS: Escitalopram Oxalate 20 mg Tablet PER TUBE SCH (08:53)
[2021-04-17] MEDS: ALPRAZolam 0.25 MG TAB PER TUBE PRN ×3 (08:53→21:46)
[2021-04-17] MEDS: Pantoprazole 40 MG GRANULES PACKET PER TUBE SCH (08:53)
[2021-04-17] MEDS: Aspirin Chewable 81 MG TAB PER TUBE SCH (08:53)
[2021-04-17] MEDS: Famotidine/PF 20 mg/2ml Vial SLOW IVP SCH ×2 (08:53→21:41)
[2021-04-17] MEDS: LACTINEX 1 TAB PER TUBE SCH (08:54)
[2021-04-17] MEDS: Magnesium Oxide 400 MG TAB PER TUBE SCH (08:54)
[2021-04-17] MEDS: Metoprolol Tartrate 50 MG TAB PER TUBE SCH ×2 (08:54→21:40)
[2021-04-17] MEDS: methylPREDNISolone Sod Succ/PF 125 MG/2 ML VIAL IVP SCH (08:54)
[2021-04-17] MEDS: Enoxaparin Sodium 40 MG/0.4 ML SYRINGE SC SCH (08:54)
[2021-04-17] MEDS: Lantus 1000 UNITS/10 ML VIAL SC SCH ×2 (08:55→23:40)
[2021-04-17] MEDS: Hydrocortisone 1% Cream 30 GM TUBE TOP SCH ×2 (08:55→23:17)
[2021-04-17] MEDS: Furosemide 20 MG TAB PO SCH (08:55)
[2021-04-17] MEDS: Nystatin Powder 15 GM BOT TOP SCH ×2 (08:55→23:17)
[2021-04-17] MEDS ORDERED: Cefepime 1 GM VIAL ONE (09:00)
[2021-04-17] MEDS ORDERED: Potassium Chloride 20 MEQ TAB PO SCH (09:00)
[2021-04-17] MEDS: Cefepime 1 GM in Sodium Chloride 0.9% 100 ML IVPB SCH ×2 (09:33→23:40)
[2021-04-17] MEDS: Mirtazapine 15 MG TAB PER TUBE SCH (21:40)
[2021-04-18 05:00] LABS: Anion Gap 12 mmol/L (10-20); BUN (Urea Nitrogen) 13 mg/dL (9.8-20.1); Calc. Creatinine Clearance 224 mL/min (70-130); Calcium 9.3 mg/dL (7.8-10.44); Carbon Dioxide 36 mmol/L (23-31); Chloride 100 mmol/L (98-107); Glucose 83 mg/dL (80-115); Potassium 3.9 mmol/L (3.5-5.1); Sodium 144 mmol/L (136-145)
[2021-04-18] MEDS: Levothyroxine Sodium 100 MCG TAB PER TUBE SCH (06:40)
[2021-04-18] MEDS: Magnesium Oxide 400 MG TAB PER TUBE SCH (10:38)
[2021-04-18] MEDS: LACTINEX 1 TAB PER TUBE SCH (10:38)
[2021-04-18] MEDS: Aspirin Chewable 81 MG TAB PER TUBE SCH (10:38)
[2021-04-18] MEDS: Metoprolol Tartrate 50 MG TAB PER TUBE SCH ×2 (10:38→21:03)
[2021-04-18] MEDS: methylPREDNISolone Sod Succ/PF 125 MG/2 ML VIAL IVP SCH (10:39)
[2021-04-18] MEDS: Famotidine/PF 20 mg/2ml Vial SLOW IVP SCH ×2 (10:39→21:03)
[2021-04-18] MEDS: Enoxaparin Sodium 40 MG/0.4 ML SYRINGE SC SCH (10:39)
[2021-04-18] MEDS: Escitalopram Oxalate 20 mg Tablet PER TUBE SCH (10:39)
[2021-04-18] MEDS: Pantoprazole 40 MG GRANULES PACKET PER TUBE SCH (10:40)
[2021-04-18] MEDS: Cefepime 1 GM in Sodium Chloride 0.9% 100 ML IVPB SCH (10:41)
[2021-04-18] MEDS: Lantus 1000 UNITS/10 ML VIAL SC SCH (10:41)
[2021-04-18] MEDS: Nystatin Powder 15 GM BOT TOP SCH ×2 (10:41→23:02)
[2021-04-18] MEDS: Hydrocortisone 1% Cream 30 GM TUBE TOP SCH ×2 (10:45→23:00)
[2021-04-18] MEDS: Loperamide HCl 1 MG/7.5 ML UDCUP PER TUBE PRN (21:01)
[2021-04-18] MEDS: Mirtazapine 15 MG TAB PER TUBE SCH (21:03)
[2021-04-18] MEDS: Acetaminophen 325 MG TAB PER TUBE PRN (21:33)
[2021-04-19] MEDS: Lantus 1000 UNITS/10 ML VIAL SC SCH ×2 (00:17→14:07)
[2021-04-19] MEDS: Cefepime 1 GM in Sodium Chloride 0.9% 100 ML IVPB SCH ×2 (00:24→11:00)
[2021-04-19 04:53] LABS: Anion Gap 12 mmol/L (10-20); BUN (Urea Nitrogen) 15 mg/dL (9.8-20.1); Calc. Creatinine Clearance 213 mL/min (70-130); Calcium 9.5 mg/dL (7.8-10.44); Carbon Dioxide 35 mmol/L (23-31); Chloride 100 mmol/L (98-107); Glucose 103 mg/dL (80-115); Potassium 3.8 mmol/L (3.5-5.1); Sodium 143 mmol/L (136-145)
[2021-04-19 05:07] LABS: Hemoglobin 13.4 g/dL (12.0-15.5); Mean Corpuscular HGB CONC 32.4 g/dL (32.0-36.0); Mean Corpuscular Hemoglobin 30.5 pg (27.0-33.0); Mean Corpuscular Volume 93.9 fl (81.6-98.3); Mean Platelet Volume 9.8 fl (7.4-10.4); Platelet Count 268 10x3/uL (150-450); RBC Distribution Width 15.4 % (11.5-14.5); White Blood Cell (WBC) Count 7.9 10x3/uL (3.5-10.5)
[2021-04-19 06:44] VITALS: BMI 41.1
[2021-04-19 06:50] LABS: Band 12 % (5-11); Lymphocytes 16 % (21-51); Monocytes 6 % (0-10); Myelocyte 5 % (0-0); Neutrophil 56 % (42-75); Reactive Lymphocytes 5 % (0-10)
[2021-04-19 06:52] LABS: Platelet Clumps SLIGHT; Platelet Morphology Comment Appears Adequate
[2021-04-19 06:54] LABS: MDiff Complete? YES; Manual Diff?? YES
[2021-04-19 06:55] LABS: RBC Morphology Normal
[2021-04-19] MEDS: Levothyroxine Sodium 100 MCG TAB PER TUBE SCH (07:26)
[2021-04-19] MEDS: Metoprolol Tartrate 50 MG TAB PER TUBE SCH (09:51)
[2021-04-19] MEDS: Escitalopram Oxalate 20 mg Tablet PER TUBE SCH (09:51)
[2021-04-19] MEDS: LACTINEX 1 TAB PER TUBE SCH (09:51)
[2021-04-19] MEDS: Famotidine/PF 20 mg/2ml Vial SLOW IVP SCH (09:51)
[2021-04-19] MEDS: Magnesium Oxide 400 MG TAB PER TUBE SCH (09:51)
[2021-04-19] MEDS: Enoxaparin Sodium 40 MG/0.4 ML SYRINGE SC SCH (09:51)
[2021-04-19] MEDS: Aspirin Chewable 81 MG TAB PER TUBE SCH (09:51)
[2021-04-19] MEDS: Hydrocortisone 1% Cream 30 GM TUBE TOP SCH (09:52)
[2021-04-19] MEDS: methylPREDNISolone Sod Succ/PF 125 MG/2 ML VIAL IVP SCH (09:52)
[2021-04-19] MEDS: Nystatin Powder 15 GM BOT TOP SCH (09:53)
[2021-04-19] MEDS: Pantoprazole 40 MG GRANULES PACKET PER TUBE SCH ×2 (09:54→09:55)
[2021-04-19 16:27] VITALS: BP 140/79; TEMP 99.4
== END 2021-04-19 17:17 | DRG 870 ==
LOC: CSHERS 14:58 → CSHICU 19:50 → CSHTELE 03-31 20:38 → CSHIMCU 04-10 16:09 → CSHTELE 04-12 16:09
PROVIDERS: ADMIT Internal Medicine; ATTEND Internal Medicine
PROC: 3E033XZ Introduction of Vasopressor into Peripheral Vein, Percutaneous Approach (ICD-10-PCS; principal; 2021-03-15)
PROC: 5A1955Z Respiratory Ventilation, Greater than 96 Consecutive Hours (ICD-10-PCS; 2021-03-15)
PROC: 02HV33Z Insertion of Infusion Device into Superior Vena Cava, Percutaneous Approach (ICD-10-PCS; 2021-03-15)
PROC: 8E0ZXY6 Isolation (ICD-10-PCS; 2021-03-15)
PROC: 5A09557 Assistance with Respiratory Ventilation, Greater than 96 Consecutive Hours, Continuous Positive Airway Pressure (ICD-10-PCS; 2021-03-25)
DX: A41.9 Sepsis, unspecified organism (principal); N39.0 Urinary tract infection, site not specified; T83.518A Infection and inflammatory reaction due to other urinary catheter, initial encounter; I46.9 Cardiac arrest, cause unspecified; R65.21 Severe sepsis with septic shock; J80 Acute respiratory distress syndrome; J15.9 Unspecified bacterial pneumonia; Z68.41 Body mass index [BMI] 40.0-44.9, adult; E87.0 Hyperosmolality and hypernatremia; I24.8 Other forms of acute ischemic heart disease; E66.01 Morbid (severe) obesity due to excess calories; E87.6 Hypokalemia; E83.42 Hypomagnesemia; E11.65 Type 2 diabetes mellitus with hyperglycemia; R77.8 Other specified abnormalities of plasma proteins; E78.5 Hyperlipidemia, unspecified; E03.9 Hypothyroidism, unspecified; I10 Essential (primary) hypertension; L40.0 Psoriasis vulgaris; R53.81 Other malaise; R13.10 Dysphagia, unspecified; B94.8 Sequelae of other specified infectious and parasitic diseases; B96.4 Proteus (mirabilis) (morganii) as the cause of diseases classified elsewhere; Z78.1 Physical restraint status; Z79.01 Long term (current) use of anticoagulants; Z79.82 Long term (current) use of aspirin; Z79.890 Hormone replacement therapy; Z79.4 Long term (current) use of insulin; Z79.899 Other long term (current) drug therapy; Z86.16 Personal history of COVID-19; Z90.49 Acquired absence of other specified parts of digestive tract; Z90.710 Acquired absence of both cervix and uterus; Z87.891 Personal history of nicotine dependence; Z85.42 Personal history of malignant neoplasm of other parts of uterus; Z88.8 Allergy status to other drugs, medicaments and biological substances; Z88.5 Allergy status to narcotic agent; Z88.1 Allergy status to other antibiotic agents; Z91.041 Radiographic dye allergy status; Z91.040 Latex allergy status
CPT/HCPCS: 0240U; 36415; 36416; 36556; 36600; 70450; 71045; 71275; 80048; 80053; 80202; 81001; 81003; 81015; 82550; 82553; 82728; 82805; 83605; 83615; 83690; 83735; 83880; 84100; 84145; 84443; 84484; 85025; 85379; 85610; 85730; 86140; 86769; 87040; 87070; 87077; 87081; 87086; 87149; 87186; 87205; 87324; 87449; 87497; 87633; 87899; 93005; 93010; 93306; 94002; 94003; 94640; 94660; 94760; 94762; 96365; 96366; 96368; 96375; J0360; J0692; J1100; J1650; J1720; J1815; J1940; J2060; J2185; J2405; J2543; J2920; J2930; J3370; J3480; J3490; J7030; J7050; J7620; S0028

== ENCOUNTER 2023-10-24 13:42 | Inpatient (IN) | payer MEDICARE, MEDICAID ==
[2023-10-24] MEDS ORDERED: Cefepime 2 GM VIAL ONE ×2 (14:20→21:18)
[2023-10-24 14:56] LABS: ALT (SGPT) 34 U/L (8-55); AST (SGOT) 58 U/L (5-34); Albumin 3.8 g/dL (3.4-4.8); Alkaline Phosphatase 100 U/L (40-110); Anion Gap 16 mmol/L (10-20); BUN (Urea Nitrogen) 7 mg/dL (9.8-20.1); Bilirubin, Total 0.9 mg/dL (0.2-1.2); Calc. Creatinine Clearance 0 mL/min (70-130); Calcium 8.3 mg/dL (7.8-10.44); Carbon Dioxide 24 mmol/L (23-31); Chloride 100 mmol/L (98-107); Estimated GFR 94; Globulin 2.8 g/dL (2.4-3.5); Glucose 162 mg/dL (83-110); Potassium 3.7 mmol/L (3.5-5.1); Protein, Total 6.6 g/dL (5.8-8.1); Sodium 136 mmol/L (136-145)
[2023-10-24 15:00] LABS: Hematocrit 45.6 % (34.9-44.5); Hemoglobin 15.3 g/dL (12.0-15.5); Mean Corpuscular HGB CONC 33.6 g/dL (32.0-36.0); Mean Corpuscular Hemoglobin 29.5 pg (27.0-33.0); Mean Platelet Volume 10.4 fl (7.4-10.4); RBC Distribution Width 14.1 % (11.5-14.5); Red Blood Cell (RBC) Count 5.18 10x6/uL (3.90-5.03); White Blood Cell (WBC) Count 6.3 10x3/uL (3.5-10.5)
[2023-10-24 15:08] LABS: Troponin I Less than 0.010 ng/mL (< 0.028)
[2023-10-24 15:17] LABS: Platelet Count 232 10x3/uL (150-450)
[2023-10-24 15:23] LABS: MDiff Complete? YES
[2023-10-24] MEDS ORDERED: Ipratropium/Albuterol 3 ML NEB ONE (15:32)
[2023-10-24 15:55] LABS: SARS-CoV-2 NAA Rapid Test Not Detected (NotDetected)
[2023-10-24 16:01] LABS: #Basophils 0.1 10x3/uL (0.0-0.2); #Monocytes 0.7 10x3/uL (0.0-1.1); #Neutrophils 4.6 10x3/uL (1.5-8.4); %Basophils 1.3 % (0.0-2.0); %Eosinophils 0.3 % (0.0-6.0); %Lymphocytes 13.4 % (18.0-47.0); %Monocytes 10.3 % (0.0-10.0); %Neutrophils 72.8 % (40.0-75.0)
[2023-10-24 16:03] LABS: Platelet Adequacy Comment Appears Adequate; RBC Morph Comment Within Normal Limits
[2023-10-24 16:05] LABS: Bilirubin Neg (Negative); Blood, Urine 150 (Negative); Clarity Cloudy (Clear); Glucose, Urine (Dipstick) Normal (Negative); Ketone, Urine 15 mg/dL (Negative); Leukocyte 500 (Negative); Nitrite Negative (Negative); Protein, Urine (Dipstick) 30 mg/dl (Neg-Trace); Urobilinogen Normal mg/dL (Less than 2)
[2023-10-24 16:18] LABS: Bacteria/HPF 3+ HPF (None Seen); CAUTI Indications for Culture Pelvic or flank pain; Squamous Epithelial 21-50 HPF (0-3); WBC/HPF Greater than 50 HPF (0-3)
[2023-10-24 16:19] LABS: Mucous/LPF 1+ LPF (<2+); Urine Culture Reflex Yes Yes
[2023-10-24] MEDS ORDERED: Ondansetron PF 4 MG/2 ML Vial IVP PRN (17:20)
[2023-10-24] MEDS ORDERED: Ondansetron ODT 4 MG TAB PO PRN (17:20)
[2023-10-24] MEDS ORDERED: Acetaminophen 650 MG Suppository PR PRN (17:20)
[2023-10-24] MEDS ORDERED: Dextrose 50% Abboject 50 ML SYRINGE SLOW IVP PRN (17:25)
[2023-10-24] MEDS ORDERED: Glucagon 1 MG/ML KIT IM PRN (17:25)
[2023-10-24] MEDS ORDERED: Dextrose 5% in Water 1,000 ML IV PRN (17:25)
[2023-10-24] MEDS ORDERED: Acetaminophen 500 MG TAB ONE (19:38)
[2023-10-24] MEDS ORDERED: Dexamethasone 10 MG/ML VIAL ONE (19:39)
[2023-10-24] MEDS ORDERED: Acetaminophen 325 MG TAB ONE (19:43)
[2023-10-24] MEDS: Acetaminophen 325 MG TAB PO PRN (19:48)
[2023-10-24] MEDS: Dexamethasone 20 MG/5 ML VIAL SLOW IVP SCH (19:49)
[2023-10-24] MEDS: VANCOMYCIN 2 GRAM/400 ML BAG 2 GM in Premix 1 BAG IVPB SCH (19:53)
[2023-10-24] MEDS: Sodium Chloride 0.9% 1,000 ML IV SCH (19:53)
[2023-10-24] MEDS: Dexamethasone 10 MG in Sodium Chloride 0.9% 50 ML IVPB SCH (19:54)
[2023-10-24] MEDS: Lactated Ringer's 1,000 ML IV SCH (20:26)
[2023-10-24] MEDS: Cefepime 2 GM in Sodium Chloride 0.9% 100 ML IVPB SCH (21:25)
[2023-10-24] MEDS: Oseltamivir 75 MG CAP PO SCH (21:25)
[2023-10-24] MEDS ORDERED: NS 0.9% w/ 20 MEQ KCL 1,000 ML ONE (22:25)
[2023-10-24] MEDS: NS 0.9% w/ 20 MEQ KCL 1,000 ML/1,000 ML BAG IV SCH (22:38)
[2023-10-25] MEDS: VANCOMYCIN 1.25 GM/250 ML BAG 1.25 GM in Premix 1 BAG IVPB SCH (02:30)
[2023-10-25 03:34] LABS: #Monocytes 0.2 10x3/uL (0.0-1.1); #Neutrophils 3.2 10x3/uL (1.5-8.4); %Lymphocytes 11.3 % (18.0-47.0); %Neutrophils 81.2 % (40.0-75.0); Hematocrit 39.5 % (34.9-44.5); Hemoglobin 13.5 g/dL (12.0-15.5); Mean Corpuscular HGB CONC 34.2 g/dL (32.0-36.0); Mean Corpuscular Hemoglobin 30.5 pg (27.0-33.0); Mean Corpuscular Volume 89.4 fl (81.6-98.3); Mean Platelet Volume 10.1 fl (7.4-10.4); Platelet Count 177 10x3/uL (150-450); RBC Distribution Width 14.2 % (11.5-14.5); Red Blood Cell (RBC) Count 4.42 10x6/uL (3.90-5.03)
[2023-10-25 04:28] LABS: Anion Gap 16 mmol/L (10-20); BUN (Urea Nitrogen) 7 mg/dL (9.8-20.1); Calc. Creatinine Clearance 0 mL/min (70-130); Calcium 7.8 mg/dL (7.8-10.44); Carbon Dioxide 19 mmol/L (23-31); Chloride 106 mmol/L (98-107); Estimated GFR 96; Glucose 231 mg/dL (83-110); Potassium 3.9 mmol/L (3.5-5.1); Sodium 137 mmol/L (136-145)
[2023-10-25] MEDS ORDERED: Ipratropium/Albuterol 3 ML NEB ONE ×2 (08:21→13:05)
[2023-10-25] MEDS: Ipratropium/Albuterol 3 ML NEB NEB PRN (08:30)
[2023-10-25] MEDS ORDERED: Dexamethasone 20 MG/5 ML VIAL SLOW IVP SCH (09:00)
[2023-10-25] MEDS ORDERED: Dexamethasone 10 MG in Sodium Chloride 0.9% 50 ML IVPB SCH (09:00)
[2023-10-25] MEDS ORDERED: Cefepime 2 GM VIAL ONE (09:57)
[2023-10-25] MEDS: Ipratropium/Albuterol 3 ML NEB NEB SCH ×2 (14:35→19:39)
[2023-10-25] MEDS ORDERED: Ipratropium/Albuterol 3 ML NEB NEB PRN (15:54)
[2023-10-26 02:00] LABS: Vancomycin, Trough 16.4 ug/mL
[2023-10-26] MEDS: Levothyroxine Sodium 100 MCG TAB PO SCH (05:44)
[2023-10-26 06:33] LABS: Anion Gap 17 mmol/L (10-20); BUN (Urea Nitrogen) 7 mg/dL (9.8-20.1); Calc. Creatinine Clearance 0 mL/min (70-130); Calcium 7.9 mg/dL (7.8-10.44); Carbon Dioxide 19 mmol/L (23-31); Chloride 108 mmol/L (98-107); Estimated GFR 97; Glucose 146 mg/dL (83-110); Potassium 3.2 mmol/L (3.5-5.1); Sodium 141 mmol/L (136-145)
[2023-10-26 06:48] LABS: Hematocrit 39.9 % (34.9-44.5); Mean Corpuscular HGB CONC 32.6 g/dL (32.0-36.0); Mean Corpuscular Hemoglobin 29.8 pg (27.0-33.0); Mean Corpuscular Volume 91.5 fl (81.6-98.3); Mean Platelet Volume 10.4 fl (7.4-10.4); Platelet Count 172 10x3/uL (150-450); RBC Distribution Width 14.5 % (11.5-14.5); Red Blood Cell (RBC) Count 4.36 10x6/uL (3.90-5.03)
[2023-10-26 07:02] LABS: MDiff Complete? YES
[2023-10-26 08:13] LABS: Band 14 % (5-11); Neutrophil 43 % (42-75); Reactive Lymphocytes 1 % (0-10)
[2023-10-26 08:14] LABS: Lymphocytes 33 % (21-51); Monocytes 9 % (0-10)
[2023-10-26 08:15] LABS: Platelet Adequacy Comment Appears Adequate; RBC Morph Comment Within Normal Limits
[2023-10-26] MEDS: Potassium Chloride 20 MEQ TAB PO SCH (09:02)
[2023-10-26] MEDS: FLU VACC QS2023(65UP)/MF59C/PF 60 MCG/0.5 ML SYRINGE IM ONE (09:10)
[2023-10-26] MEDS: Hydrocortisone 1% Cream 30 GM TUBE TOP SCH (15:49)
[2023-10-26] MEDS: methylPREDNISolone Sod Succ 40 MG VIAL IVP SCH (18:16)
[2023-10-26] MEDS: Colestipol 1 GM TAB PO SCH (21:34)
[2023-10-27 06:11] LABS: Anion Gap 13 mmol/L (10-20); BUN (Urea Nitrogen) 8 mg/dL (9.8-20.1); Calc. Creatinine Clearance 0 mL/min (70-130); Carbon Dioxide 21 mmol/L (23-31); Chloride 106 mmol/L (98-107); Estimated GFR 96; Glucose 229 mg/dL (83-110); Magnesium 1.5 mg/dL (1.6-2.6); Potassium 3.8 mmol/L (3.5-5.1); Sodium 136 mmol/L (136-145)
[2023-10-27 06:26] LABS: Hemoglobin 13.8 g/dL (12.0-15.5); Mean Corpuscular HGB CONC 33.7 g/dL (32.0-36.0); Mean Corpuscular Hemoglobin 30.4 pg (27.0-33.0); Mean Corpuscular Volume 90.3 fl (81.6-98.3); Mean Platelet Volume 10.5 fl (7.4-10.4); Platelet Count 176 10x3/uL (150-450); RBC Distribution Width 14.2 % (11.5-14.5); Red Blood Cell (RBC) Count 4.54 10x6/uL (3.90-5.03)
[2023-10-27] MEDS: Insulin Regular 300 UNITS/3 ML VIAL SC PRN (06:32)
[2023-10-27 07:08] LABS: MDiff Complete? YES
[2023-10-27 07:55] LABS: Band 6 % (5-11); Lymphocytes 14 % (21-51); Monocytes 3 % (0-10); Myelocyte 1 % (0-0); Neutrophil 74 % (42-75); Reactive Lymphocytes 2 % (0-10)
[2023-10-27 07:57] LABS: Platelet Adequacy Comment Appears Adequate; RBC Morph Comment Within Normal Limits
[2023-10-27 07:58] LABS: Large Platelets SLIGHT (None Seen)
[2023-10-27] MEDS: Magnesium Sulfate/D5W 1 GM in Premix 1 BAG IVPB SCH (11:13)
[2023-10-27 14:26] LABS: Vancomycin, Trough 14.5 ug/mL
[2023-10-27] MEDS: Melatonin 3 MG TAB PO PRN (20:51)
[2023-10-27] MEDS: HumaLOG 300 UNITS/3 ML VIAL SC PRN (20:53)
[2023-10-28 05:32] LABS: Hematocrit 40.6 % (34.9-44.5); Hemoglobin 13.5 g/dL (12.0-15.5); Mean Corpuscular HGB CONC 33.3 g/dL (32.0-36.0); Mean Corpuscular Hemoglobin 29.4 pg (27.0-33.0); Mean Corpuscular Volume 88.5 fl (81.6-98.3); Mean Platelet Volume 10.4 fl (7.4-10.4); Platelet Count 187 10x3/uL (150-450); RBC Distribution Width 13.8 % (11.5-14.5); Red Blood Cell (RBC) Count 4.59 10x6/uL (3.90-5.03); White Blood Cell (WBC) Count 3.9 10x3/uL (3.5-10.5)
[2023-10-28 05:33] LABS: MDiff Complete? YES
[2023-10-28 05:39] LABS: Anion Gap 14 mmol/L (10-20); BUN (Urea Nitrogen) 10 mg/dL (9.8-20.1); Calc. Creatinine Clearance 0 mL/min (70-130); Calcium 8.3 mg/dL (7.8-10.44); Carbon Dioxide 22 mmol/L (23-31); Chloride 106 mmol/L (98-107); Estimated GFR 98; Glucose 228 mg/dL (83-110); Magnesium 1.8 mg/dL (1.6-2.6); Potassium 3.4 mmol/L (3.5-5.1); Sodium 139 mmol/L (136-145)
[2023-10-28 06:02] LABS: Band 15 % (5-11); Lymphocytes 19 % (21-51); Monocytes 3 % (0-10); Neutrophil 63 % (42-75)
[2023-10-28 06:05] LABS: Large Platelets SLIGHT (None Seen); Platelet Adequacy Comment Appears Adequate; RBC Morph Comment Within Normal Limits
[2023-10-28] MEDS ORDERED: Nystatin Powder 15 GM BOT TOP PRN (13:46)
[2023-10-28] MEDS: Ipratropium/Albuterol 3 ML NEB NEB SCH (13:55)
[2023-10-28] MEDS: Guaifenesin DM 100-10/5 ML UDCUP PO SCH (14:16)
[2023-10-28] MEDS: Potassium Chloride 20 MEQ TAB PO SCH (14:16)
[2023-10-28] MEDS: metFORMIN 500 MG TAB PO SCH (17:08)
[2023-10-28] MEDS: Montelukast Sodium 10 mg Tablet PO SCH (21:54)
[2023-10-28] MEDS: Melatonin 3 MG TAB PO SCH (21:55)
[2023-10-28] MEDS: Famotidine 20 MG TAB PO SCH (21:56)
[2023-10-28] MEDS: Enoxaparin 40 MG (0.4 mL) SYRINGE SC SCH (21:58)
[2023-10-29 04:14] LABS: Anion Gap 15 mmol/L (10-20); BUN (Urea Nitrogen) 15 mg/dL (9.8-20.1); Calc. Creatinine Clearance 0 mL/min (70-130); Calcium 8.4 mg/dL (7.8-10.44); Carbon Dioxide 20 mmol/L (23-31); Chloride 106 mmol/L (98-107); Estimated GFR 95; Glucose 197 mg/dL (83-110); Potassium 3.9 mmol/L (3.5-5.1); Sodium 137 mmol/L (136-145)
[2023-10-29] MEDS: Polyethylene Glycol 3350 17 GM Packet PO SCH (13:52)
[2023-10-29] MEDS: Lisinopril 10 MG TAB PO SCH (15:26)
[2023-10-30] MEDS: Lisinopril 20 MG TAB PO SCH (09:22)
[2023-10-30 09:30] VITALS: BP 150/85
[2023-10-30] MEDS: Polyethylene Glycol 3350 17 GM Packet PO SCH (09:31)
[2023-10-30 09:32] VITALS: TEMP 97.6
[2023-10-30] MEDS ORDERED: Estradiol 0.01% Vaginal Cream 42.5 gm Tube VAG SCH (21:00)
== END 2023-10-30 14:54 | DRG 871 ==
LOC: CSHERS 13:42 → CSHERHOLD 15:43 → CSHTELE 10-25 13:00
PROVIDERS: ADMIT Family Medicine; ATTEND Family Medicine
DX: A41.89 Other specified sepsis (principal); J10.00 Influenza due to other identified influenza virus with unspecified type of pneumonia; J96.21 Acute and chronic respiratory failure with hypoxia; I50.32 Chronic diastolic (congestive) heart failure; N39.0 Urinary tract infection, site not specified; E78.5 Hyperlipidemia, unspecified; E03.9 Hypothyroidism, unspecified; I11.0 Hypertensive heart disease with heart failure; Z88.0 Allergy status to penicillin; Z88.1 Allergy status to other antibiotic agents; Z79.899 Other long term (current) drug therapy; Z79.82 Long term (current) use of aspirin; Z79.84 Long term (current) use of oral hypoglycemic drugs; Z79.4 Long term (current) use of insulin; Z98.890 Other specified postprocedural states; Z11.52 Encounter for screening for COVID-19; E66.01 Morbid (severe) obesity due to excess calories; E87.6 Hypokalemia
CPT/HCPCS: 36415; 36416; 51702; 71045; 80048; 80053; 80202; 81001; 83605; 83735; 84484; 85025; 87040; 87086; 93005; 93010; 94640; 94760; 94762; 96361; 96374; 96375; 97139; J0692; J1100; J1650; J1815; J2920; J3370; J3475; J3480; J3490; J7050; J7120; J7620